=== PATIENT | female | born 1955 | race Caucasian/White ===

== ENCOUNTER → 2016-07-20 | Outpatient (CLI) | payer BC ==
--- NOTE | 2016-07-20 17:14 | CR ---
EXAMINATION: Right elbow HISTORY: Injury COMPARISON: None TECHNIQUE: 3 views FINDINGS/IMPRESSION: There is no acute osseous abnormality, dislocation, or fracture identified. Bon e mineralization and joint spaces appear normal without evidence of a joint effusion. Mild soft tiss ue swelling is noted along the medial epicondyles and overlying the olecranon.
--- NOTE | 2016-07-20 17:15 | CR ---
EXAMINATION: Right shoulder HISTORY: Injury COMPARISON: None TECHNIQUE: 3 views FINDINGS/IMPRESSION: There is no acute osseous abnormality, dislocation, or fracture identified. Bon e mineralization and joint spaces appear preserved. Mild acromioclavicular osteoarthritic changes ar e noted.
== END ==
LOC: MW.CHFP 15:55
PROVIDERS: ATTEND Physician Assistant
DX: S49.91XA Unspecified injury of right shoulder and upper arm, initial encounter (principal); S59.901A Unspecified injury of right elbow, initial encounter; M19.011 Primary osteoarthritis, right shoulder; M79.89 Other specified soft tissue disorders
CPT/HCPCS: 73030-26-RT; 73030-RT; 73080-26-RT; 73080-RT

== ENCOUNTER 2016-09-09 13:33 | Inpatient (IN) | payer BC ==
--- NOTE | 2016-09-09 13:58 | EDM.PDOC ---
<Alma Delia Sebastian - Last Filed: 09/09/16 18:41> ED HPI GI/ABDOMINAL - General Chief Complaint: Abdominal Pain Stated Complaint: ABD PAIN Time Seen by Provider: 09/09/16 13:51 Source of Information: Reports: Patient, RN notes reviewed History Limitations: Reports: No limitations - History of Present Illness INITIAL COMMENTS - FREE TEXT/NARRATIVE: HISTORY AND PHYSICAL: [60-year-old female presenting with midepigastric pain that started last night at 5:00pm] History of Present Illness: [Patient had a burger for supper and then later pain occurred ]Hysterectomy r/t dysfunctional Uterine bleeding Review of Systems: As per history of present illness and below otherwise all systems reviewed and negative. Past medical history: As per history of present illness and as reviewed below otherwise noncontributory. Surgical history: As per history of present illness and as reviewed below otherwise noncontributory. Social history: No reported history of drug or alcohol abuse. Family history: As per history of present illness and as reviewed below otherwise noncontributory. Physical exam: Alert White female answering questions appropriately. Very uncomfortable on the cart HEENT: Atraumatic, normocehpalic, pupils reactive, negative for conjunctival pallor or scleral icterus, mucous membranes moist, throat clear, neck supple, nontender, trachea midline. Lungs: Clear to auscultation, breath sounds equal bilaterally, chest non tender. Heart: S1S2, regular, negative for clicks, rubs, or JVD. Abdomen: Soft, nondistended, nontender. Negative for masses or hepatossplenmegaly. Negative for costovertebral tenderness. Pelvis: Stable nontender. Genitourinary: Deferred. Rectal: Deferred Extremities: Atraumatic, negative for cords or calf pain. Neurovascular unremarkable. Neuro: Awake, alert, oriented. Cranial nerves II through XII unremarkable. Cerebellum unremarkable. Motor and sensory unremarkable throughout. Exam nonfocal. DR Pond notified of the patient and CT with Small bowel obstruction. NG tube ordered. he will come in to evaluate the patient. Diagnostics: [US ABD / ABD Pelvis CT with contrast ] Therapeutics: [NG/ Morphine] Impression: [Small Bowel Obstruction] Plan: [admit to Dr. Pond] Definitive disposition and diagnosis as appropriate pending reevaluation and review of above. Timing/Duration: Reports: Hour(s): Location: generalized Quality: Reports: cramping - Related Data Allergies/ADRs: Allergies Allergy/AdvReac Type Severity Reaction Status Date / Time No Known Allergies Allergy Verified 09/09/16 13:43 Home Meds: Home Meds Aspirin 1 tab PO DAILY 06/08/15 [History] Atenolol [Tenormin] 1.5 tab PO BID 06/08/15 [History] DULoxetine [Cymbalta] 1 cap PO DAILY 06/08/15 [History] Gabapentin [Gabapentin] 1 cap PO DAILY PRN 06/08/15 [History] Gemfibrozil [Gemfibrozil] 1 tab PO BID 06/08/15 [History] Hydrochlorothiazide [Hydrochlorothiazide] 1 tab PO DAILY 06/08/15 [History] Hydrocodone/Acetaminophen [[place] 5-325 Tablet] 1 each PO Q4H PRN #12 tablet 06/22 [Rx] LORazepam 1 mg PO TID PRN #15 tablet 06/08/15 [Rx] Sennosides/Docusate Sodium [Stool Softener] 1 tab PO DAILY PRN 06/08/15 [History ] Vitamin B Complex & Vit C No.4 [Super B Complex] 1 tab PO DAILY 06/08/15 [ History] amLODIPine [Norvasc] 1 tab PO DAILY 06/08/15 [History] diphenhydrAMINE [Benadryl] 1 tab PO Q6H PRN 06/08/15 [History] Past Medical History Cardiovascular History: Reports: High cholesterol, Hypertension Musculoskeletal History: Reports: Back pain, chronic - Past Surgical History Female Surgical History: Reports: Hysterectomy, Tubal ligation Social & Family History - Family History Endocrine/Metabolic: Reports: Diabetes, type I Oncologic: Reports: Bone, Breast, Prostate, Skin - Tobacco Use Smoking Status *Q: Never Smoker Second Hand Smoke Exposure: No - Recreational Drug Use Recreational Drug Use: No ED ROS GENERAL - Review of Systems Review Of Systems: ROS reveals no pertinent complaints other than HPI. ED EXAM, GI/ABD - Physical Exam Exam: See Below (see dictation) Course - Vital Signs Last Recorded V/S: Last Vital Signs Temp 37.1 C 09/10/16 04:00 Pulse 84 09/10/16 04:00 Resp 19 09/10/16 04:00 BP 135/84 09/10/16 04:00 Pulse Ox 92 L 09/10/16 04:00 - Orders/Labs/Meds Orders: Active Orders 24 hr Category Date Time Status Admission Status [Patient Status] [ADT] Stat ADT 09/09/16 20:24 Active Notify Provider Consults [RC] ASDIRECTED Care 09/09/16 18:44 Inactive Abdomen Ltd [US] Stat Exams 09/09/16 13:55 Taken Abdomen Pelvis w Cont [CT] Stat Exams 09/09/16 16:26 Taken Chest 1V Frontal [CR] Stat Exams 09/09/16 20:07 Taken Sodium Chloride 0.9% [Saline Flush] Med 09/09/16 14:03 Active 10 ml FLUSH ASDIRECTED PRN Sodium Chloride 0.9% [Saline Flush] Med 09/09/16 14:03 Active 2.5 ml FLUSH ASDIRECTED PRN NG [Nasogastric Orogastric Tube Insertion] [OM.PC] Stat Oth 09/09/16 18:37 Ordered Saline Lock Insert [OM.PC] Stat Ot 09/09/16 14:02 Ordered Medication Orders Lactated Ringer's (Ringers, Lactated) 1,000 mls @ 125 mls/hr IV ASDIRECTED ALESSIO Last Admin: 09/10/16 06:55 Dose: 125 mls/hr Infusion: 09/10/16 06:04 Dose: 125 mls/hr Admin: 09/09/16 22:04 Dose: 125 mls/hr Pantoprazole Sodium 40 mg/ (Sodium Chloride) 10 mls @ 300 mls/hr IVPUSH DAILY [facility] Cefoxitin Sodium 1 gm/ Premix 50 mls @ 100 mls/hr IV Q6H [facility] Last Admin: 09/10/16 03:16 Dose: 100 mls/hr Infusion: 09/09/16 22:36 Dose: 100 mls/hr Admin: 09/09/16 22:06 Dose: 100 mls/hr Sodium Chloride (Saline Flush) 10 ml FLUSH ASDIRECTED PRN PRN Reason: Keep Vein Open Sodium Chloride (Saline Flush) 2.5 ml FLUSH ASDIRECTED PRN PRN Reason: Keep Vein Open Labs: Laboratory Tests 09/09/16 09/09/16 09/09/16 Range/Units 14:12 14:12 14:12 WBC 15.01 H (4.0-11.0) K/uL RBC 4.41 (4.30-5.90) M/uL Hgb 14.2 (12.0-16.0) g/dL Hct 41.4 (36.0-46.0) % MCV 93.9 (80.0-98.0) fL MCH 32.2 H (27.0-32.0) pg MCHC 34.3 (31.0-37.0) g/dL RDW Std Deviation 51.6 (28.0-62.0) fl RDW Coeff of An 15 (11.0-15.0) % Plt Count 455 H (150-400) K/uL MPV 9.60 (7.40-12.00) fL Neut % (Auto) 86.6 H (48.0-80.0) % Lymph % (Auto) 6.5 L (16.0-40.0) % Ness % (Auto) 5.9 (0.0-15.0) % Eos % (Auto) 0.9 (0.0-7.0) % Baso % (Auto) 0.1 (0.0-1.5) % Neut # (Auto) 13.0 H (1.4-5.7) K/uL Lymph # (Auto) 1.0 (0.6-2.4) K/uL Ness # (Auto) 0.9 H (0.0-0.8) K/uL Eos # (Auto) 0.1 (0.0-0.7) K/uL Baso # (Auto) 0.0 (0.0-0.1) K/uL Nucleated RBC % 0.0 /100WBC Nucleated RBCs # 0 K/uL Sodium 140 (136-146) mmol/L Potassium 4.3 (3.5-5.1) mmol/L Chloride 103 (98-110) mmol/L Carbon Dioxide 23 (21-31) mmol/L BUN 22 (6.0-23.0) mg/dL Creatinine 0.9 (0.6-1.5) mg/dL Est Cr Clr Drug Dosing 63.01 mL/min Estimated GFR (MDRD) > 60.0 ml/min Glucose 113 H (60-110) mg/dL Calcium 11.7 H (8.8-10.8) mg/dL Total Bilirubin 0.6 (0.1-1.5) mg/dL AST 26 (5-40) IU/L ALT 27 (8-54) IU/L Alkaline Phosphatase 90 (40-150) Total Protein 8.6 H (6.0-8.0) g/dL Albumin 4.7 (3.5-5.0) g/dL Globulin 3.9 H (2.0-3.5) g/dL Albumin/Globulin Ratio 1.2 L (1.3-2.8) Amylase 48 (10-90) U/L Lipase 39 (7-80) U/L H. pylori IgG Antibody NEGATIVE (NEG) Meds: Medications Generic Name Dose Route Start Last Admin Trade Name Vipul PRN Reason Stop Dose Admin Lactated Ringer's 1,000 mls @ 125 mls/hr 09/09/16 20:31 09/10/16 06:55 Ringers, Lactated IV 125 mls/hr ASDIRECTED ALESSIO Administration Pantoprazole Sodium 40 mg/ 10 mls @ 300 mls/hr 09/10/16 09:00 Sodium Chloride IVPUSH DAILY [facility] Cefoxitin Sodium 1 gm/ Premix 50 mls @ 100 mls/hr 09/09/16 20:30 09/10/16 03: 16 IV 100 mls/hr Q6H ALESSIO Administration Sodium Chloride 10 ml 09/09/16 14:03 Saline Flush FLUSH ASDIRECTED PRN Keep Vein Open Sodium Chloride 2.5 ml 09/09/16 14:03 Saline Flush FLUSH ASDIRECTED PRN Keep Vein Open Discontinued Medications Generic Name Dose Route Start Last Admin Trade Name Vipul PRN Reason Stop Dose Admin Al Hydroxide/Mg Hydroxide 15 0 ml 09/09/16 16:25 09/09/16 17:44 ml/ Metoclopramide HCl 5 mg/ PO 09/09/16 16:26 1 each Lidocaine HCl 5 ml ONETIME ONE Administration Famotidine 20 mg 09/09/16 14:04 09/09/16 14:46 Pepcid IVPUSH 09/09/16 14:05 20 mg ONETIME ONE Administration Sodium Chloride 1,000 mls @ 999 mls/hr 09/09/16 18:42 09/09/16 19:45 Normal Saline IV 09/09/16 19:42 999 mls/hr STAT ONE Administration Iopamidol 95 ml 09/09/16 17:13 09/09/16 17:14 Isovue-370 (76%) IVPUSH 09/09/16 17:14 95 ml ONETIME STA Administration Morphine Sulfate 2 mg 09/09/16 16:29 09/09/16 17:40 Morphine IV 09/09/16 16:30 2 mg ONETIME ONE Administration Morphine Sulfate 2 mg 09/09/16 18:43 09/09/16 19:46 Morphine IV 09/09/16 18:44 2 mg ONETIME ONE Administration Ondansetron HCl 4 mg 09/09/16 16:29 09/09/16 17:37 Zofran IVPUSH 09/09/16 16:30 4 mg ONETIME ONE Administration Departure - Departure Disposition: Admitted As Inpatient 67 Condition: good Clinical Impression: Small bowel obstruction <Heidi Plaza - Last Filed: 09/10/16 07:06> ED ROS GENERAL - Review of Systems Review Of Systems: ROS reveals no pertinent complaints other than HPI. Departure - Departure Time of Disposition: 19:00 Condition: good
[2016-09-09] MEDS ORDERED: Sodium Chloride 0.9% 2.5 ML Syringe FLUSH PRN (14:03)
[2016-09-09] MEDS ORDERED: Sodium Chloride 0.9% 10 ML Syringe FLUSH PRN (14:03)
[2016-09-09] MEDS ORDERED: Famotidine 20 MG/2 ML SDV IVPUSH ONE (14:04)
[2016-09-09 14:42] LABS: CHLORIDE,CL 103 mmol/L (98-110); SODIUM,NA 140 mmol/L (136-146)
[2016-09-09] MEDS ORDERED: Alum Hydrox/Mag Hydrox/Simeth 15 ML, Metoclopramide 5 MG, Lidocaine 2% 5 ML PO ONE ×3 (16:25)
[2016-09-09] MEDS ORDERED: Morphine 10 MG/ML Syringe IV ONE ×2 (16:29→18:43)
[2016-09-09] MEDS ORDERED: Ondansetron 4 MG/2 ML SDV IVPUSH ONE (16:29)
[2016-09-09] MEDS ORDERED: Iopamidol 755 Mg/ML 100 ML Bottle IVPUSH STA (17:13)
[2016-09-09] MEDS ORDERED: Sodium Chloride 0.9% 1,000 ML IV ONE (18:42)
--- NOTE | 2016-09-09 20:45 | PCM.SN ---
- Free Text/Narrative Note: admission h/p dictated ,595190 ct sbo and pain has been under control; will ngt, and serial abd exam; if emergency surgery, will likely R hemicolectomy with possible ileostomy; pt voiced understanding;
[2016-09-09] MEDS: Lactated Ringers 1,000 ML IV SCH (22:04)
[2016-09-09] MEDS: cefOXitin 1 GM in Premix Bag 1 BAG IV SCH (22:06)
[2016-09-10] MEDS: cefOXitin 1 GM in Premix Bag 1 BAG IV SCH ×4 (03:16→20:24)
[2016-09-10 05:32] LABS: CHLORIDE,CL 106 mmol/L (98-110); SODIUM,NA 137 mmol/L (136-146)
[2016-09-10] MEDS: Lactated Ringers 1,000 ML IV SCH ×2 (06:55→17:30)
[2016-09-10] MEDS ORDERED: Bisacodyl 10 MG Supp RECTAL ONE (07:08)
[2016-09-10] MEDS ORDERED: Sodium Chloride 0.9% with KCl 1,000 ML IV SCH (07:45)
[2016-09-10] MEDS ORDERED: Morphine 2 MG/ML Syringe IVPUSH PRN (07:59)
--- NOTE | 2016-09-10 08:16 | PCM.SURGPN ---
- General Info Date of Service: 09/10/16 POD#: 1 Functional Status: Reports: pain controlled (passing gas) - Review of Systems Gastrointestinal: Reports: No symptoms - Patient Data Vitals - most recent: Last Vital Signs Temp 98.7 F 09/10/16 04:00 Pulse 84 09/10/16 04:00 Resp 19 09/10/16 04:00 BP 135/84 09/10/16 04:00 Pulse Ox 92 L 09/10/16 04:00 Weight - most recent: 167 lb 8.821 oz I&O - last 24 hours: Intake & Output 09/09/16 09/10/16 09/10/16 22:59 06:59 14:59 Intake Total 50 1010 50 Output Total 990 Balance 50 20 50 Lab Results last 24 hrs: Laboratory Results - last 24 hr 09/10/16 09/10/16 Range/Units 04:43 04:43 WBC 7.18 (4.0-11.0) K/uL RBC 4.05 L (4.30-5.90) M/uL Hgb 12.9 (12.0-16.0) g/dL Hct 37.7 (36.0-46.0) % MCV 93.1 (80.0-98.0) fL MCH 31.9 (27.0-32.0) pg MCHC 34.2 (31.0-37.0) g/dL RDW Std Deviation 51.5 (28.0-62.0) fl RDW Coeff of An 16 H (11.0-15.0) % Plt Count 417 H (150-400) K/uL MPV 9.50 (7.40-12.00) fL Neut % (Auto) 75.0 (48.0-80.0) % Lymph % (Auto) 13.4 L (16.0-40.0) % Dixon % (Auto) 10.9 (0.0-15.0) % Eos % (Auto) 0.6 (0.0-7.0) % Baso % (Auto) 0.1 (0.0-1.5) % Neut # (Auto) 5.4 (1.4-5.7) K/uL Lymph # (Auto) 1.0 (0.6-2.4) K/uL Dixon # (Auto) 0.8 (0.0-0.8) K/uL Eos # (Auto) 0.0 (0.0-0.7) K/uL Baso # (Auto) 0.0 (0.0-0.1) K/uL Nucleated RBC % 0.0 /100WBC Nucleated RBCs # 0 K/uL Sodium 137 (136-146) mmol/L Potassium 3.1 L (3.5-5.1) mmol/L Chloride 106 (98-110) mmol/L Carbon Dioxide 20 L (21-31) mmol/L BUN 19 (6.0-23.0) mg/dL Creatinine 0.7 (0.6-1.5) mg/dL Est Cr Clr Drug Dosing 81.01 mL/min Estimated GFR (MDRD) > 60.0 ml/min Glucose 104 (60-110) mg/dL Calcium 9.9 (8.8-10.8) mg/dL Total Bilirubin 0.5 (0.1-1.5) mg/dL AST 18 (5-40) IU/L ALT 20 (8-54) IU/L Alkaline Phosphatase 72 (40-150) Total Protein 6.9 (6.0-8.0) g/dL Albumin 3.8 (3.5-5.0) g/dL Globulin 3.1 (2.0-3.5) g/dL Albumin/Globulin Ratio 1.2 L (1.3-2.8) Carcinoembryonic Ag 0.8 ng/mL Med Orders - Current: Current Medications Lactated Ringer's (Ringers, Lactated) 1,000 mls @ 125 mls/hr IV ASDIRECTED [facility] Last Admin: 09/10/16 06:55 Dose: 125 mls/hr Pantoprazole Sodium 40 mg/ (Sodium Chloride) 10 mls @ 300 mls/hr IVPUSH DAILY [facility] Cefoxitin Sodium 1 gm/ Premix 50 mls @ 100 mls/hr IV Q6H [facility] Last Admin: 09/10/16 08:02 Dose: 100 mls/hr Potassium Chloride/Sodium Chloride (Normal Saline With 40 Meq Kcl) 1,000 mls @ 125 mls/hr IV ASDIRECTED ALESSIO Stop: 09/10/16 15:44 Last Admin: 09/10/16 08:01 Dose: 125 mls/hr Morphine Sulfate (Morphine) 1 mg IVPUSH Q6H PRN PRN Reason: Pain Sodium Chloride (Saline Flush) 10 ml FLUSH ASDIRECTED PRN PRN Reason: Keep Vein Open Sodium Chloride (Saline Flush) 2.5 ml FLUSH ASDIRECTED PRN PRN Reason: Keep Vein Open Discontinued Medications Bisacodyl (Dulcolax) 10 mg RECTAL ONETIME ONE Stop: 09/10/16 07:09 Last Admin: 09/10/16 08:02 Dose: 10 mg Al Hydroxide/Mg Hydroxide 15 ml/ Metoclopramide HCl 5 mg/Lidocaine HCl 5 ml 0 ml PO ONETIME ONE Stop: 09/09/16 16:26 Last Admin: 09/09/16 17:44 Dose: 1 each Famotidine (Pepcid) 20 mg IVPUSH ONETIME ONE Stop: 09/09/16 14:05 Last Admin: 09/09/16 14:46 Dose: 20 mg Sodium Chloride (Normal Saline) 1,000 mls @ 999 mls/hr IV STAT ONE Stop: 09/09/16 19:42 Last Admin: 09/09/16 19:45 Dose: 999 mls/hr Iopamidol (Isovue-370 (76%)) 95 ml IVPUSH ONETIME STA Stop: 09/09/16 17:14 Last Admin: 09/09/16 17:14 Dose: 95 ml Morphine Sulfate (Morphine) 2 mg IV ONETIME ONE Stop: 09/09/16 16:30 Last Admin: 09/09/16 17:40 Dose: 2 mg Morphine Sulfate (Morphine) 2 mg IV ONETIME ONE Stop: 09/09/16 18:44 Last Admin: 09/09/16 19:46 Dose: 2 mg Ondansetron HCl (Zofran) 4 mg IVPUSH ONETIME ONE Stop: 09/09/16 16:30 Last Admin: 09/09/16 17:37 Dose: 4 mg - Exam Abdomen: bowel sounds present, soft, no tenderness, no distension - Problem List Review Problem List Initiated/Reviewed/Updated: Yes - My Orders Last 24 Hours: Active Orders 24 hr Category Date Time Status Communication Order [RC] ROUTINE Care 09/10/16 06:41 Active NG [Gastrointestinal Tube Mgmt] [RC] ASDIRECTED Care 09/09/16 21:06 Active Nothing per Oral After Midnight Diet [DIET] Diet 09/09/16 Dinner Active Nothing per Oral After Midnight Diet [DIET] Diet 09/10/16 Lunch Active Abdomen 2V AP Flat Upright [CR] Timed Exams 09/10/16 07:30 Taken CBC WITH AUTO DIFF [HEME] Routine Lab 09/11/16 05:00 Ordered CMP [COMPREHENSIVE METABOLIC PN,CMP] [CHEM] Routine Lab 09/11/16 05:00 Ordered Lactated Ringers [Ringers, Lactated] 1,000 ml Med 09/09/16 20:31 Active IV ASDIRECTED Morphine Med 09/10/16 07:59 Active 1 mg IVPUSH Q6H PRN Pantoprazole [ProTONIX IV] 40 mg Med 09/10/16 09:00 Active Sodium Chloride 0.9% [Normal Saline] 10 ml IVPUSH DAILY Sodium Chloride 0.9% with KCl [Normal Saline with 40 Med 09/10/16 07:45 Active mEq KCl] 1,000 ml IV ASDIRECTED cefOXitin [Mefoxin in Dextrose,Iso-Osm 1 GM/50 ML] 1 gm Med 09/09/16 20:30 Active Premix Bag 1 bag IV Q6H Medication Orders Lactated Ringer's (Ringers, Lactated) 1,000 mls @ 125 mls/hr IV ASDIRECTED ALESSIO Last Admin: 09/10/16 06:55 Dose: 125 mls/hr Infusion: 09/10/16 06:04 Dose: 125 mls/hr Admin: 09/09/16 22:04 Dose: 125 mls/hr Pantoprazole Sodium 40 mg/ (Sodium Chloride) 10 mls @ 300 mls/hr IVPUSH DAILY [facility] Cefoxitin Sodium 1 gm/ Premix 50 mls @ 100 mls/hr IV Q6H [facility] Last Admin: 09/10/16 08:02 Dose: 100 mls/hr Infusion: 09/10/16 03:46 Dose: 100 mls/hr Admin: 09/10/16 03:16 Dose: 100 mls/hr Infusion: 09/09/16 22:36 Dose: 100 mls/hr Admin: 09/09/16 22:06 Dose: 100 mls/hr Potassium Chloride/Sodium Chloride (Normal Saline With 40 Meq Kcl) 1,000 mls @ 125 mls/hr IV ASDIRECTED ALESSIO Stop: 09/10/16 15:44 Last Admin: 09/10/16 08:01 Dose: 125 mls/hr Morphine Sulfate (Morphine) 1 mg IVPUSH Q6H PRN PRN Reason: Pain Sodium Chloride (Saline Flush) 10 ml FLUSH ASDIRECTED PRN PRN Reason: Keep Vein Open Sodium Chloride (Saline Flush) 2.5 ml FLUSH ASDIRECTED PRN PRN Reason: Keep Vein Open - Assessment Assessment (Free Text/Narrative):: admitted for SBO w TI edema/thickening; doing well overnight, no pain meds used ; remarked pain resolved; no nausea; ngt put out very little; wbc dropped from 15 to 7; K 3.1 being replenished; overall, she doing better; kub still have air fluid level; cea 0.8 - Plan Plan (Free Text/Narrative):: continue npo/ngt suction/iv abx; pt has diarrhea; would suppository 10 mg dulcolax, replenish K, recheck blood work in the morning; and ct a/p w po contrast, gastrograffin; await official reading of kub this am
[2016-09-10] MEDS: Phenol 1.4% Oral Spray 177 ML Bottle MUCMEM PRN ×2 (09:36→17:01)
[2016-09-10] MEDS: Pantoprazole 40 MG in Sodium Chloride 0.9% 10 ML IVPUSH SCH (09:44)
[2016-09-11] MEDS: Lactated Ringers 1,000 ML IV SCH ×3 (01:17→18:39)
[2016-09-11] MEDS: cefOXitin 1 GM in Premix Bag 1 BAG IV SCH ×4 (02:33→20:45)
[2016-09-11 06:11] LABS: CHLORIDE,CL 111 mmol/L (98-110); SODIUM,NA 141 mmol/L (136-146)
[2016-09-11] MEDS: Pantoprazole 40 MG in Sodium Chloride 0.9% 10 ML IVPUSH SCH (08:38)
--- NOTE | 2016-09-11 09:56 | PCM.SN ---
- Free Text/Narrative Note: h/p re dictated, [id number];
--- NOTE | 2016-09-11 13:19 | CT ---
CT of the abdomen and pelvis without contrast. HISTORY: Pain TECHNIQUE: Axial CT images were obtained of the abdomen and pelvis without contrast. Coronal and sag ittal reconstructions obtained. FINDINGS: There is right basilar atelectasis and trace bilateral pleural effusions. There is an NG tube with t ip in the stomach. The liver, spleen, adrenal glands, and pancreas appear unremarkable for noncontrast examination. The gallbladder appears normal. There is no bulky retroperitoneal lymphadenopathy. No abdominal ascite s. There are no calcifications noted within the kidneys or along the courses of the ureters bilaterally . The large and small bowel are normal in caliber without evidence of obstruction. There are scattered areas of wall thickening noted within the small bowel most prominent within the distal ileum. The a ppendix appears normal. There is no bulky pelvic lymphadenopathy. There is a trace free pelvic fluid . No free air. The urinary bladder appears normal. Degenerative changes are noted within the lower lumbar spine with grade I anterolisthesis of L4 on L 5 and L5 on S1. IMPRESSION: 1. Mildly prominent loops of small bowel with multifocal areas of wall thickening most prominent wit hin the distal ileum. The differential includes an infectious etiology, Crohn's disease, versus tony ac disease. There is moderate narrowing at the ileocecal junction however contrast has passed into t he cecum. 2. Trace bilateral pleural effusions. 3. Small amount of abdominal ascites.
--- NOTE | 2016-09-11 14:41 | PCM.SURGPN ---
- General Info Date of Service: 09/11/16 Functional Status: Reports: pain controlled - Review of Systems General: Reports: No Symptoms (had BM X1, and passing gas; ngt put out is <100; adequate urin output, and pt is asking for food) - Patient Data Vitals - most recent: Last Vital Signs Temp 98.6 F 09/11/16 11:57 Pulse 105 H 09/11/16 11:57 Resp 16 09/11/16 11:57 BP 152/85 H 09/11/16 11:57 Pulse Ox 94 L 09/11/16 11:57 Weight - most recent: 167 lb 8.821 oz I&O - last 24 hours: Intake & Output 09/10/16 09/11/16 09/11/16 22:59 06:59 14:59 Intake Total 1109 1099 829 Output Total 730 1000 Balance 379 99 829 Lab Results last 24 hrs: Laboratory Results - last 24 hr 09/11/16 09/11/16 Range/Units 04:58 04:58 WBC 4.52 (4.0-11.0) K/uL RBC 3.71 L (4.30-5.90) M/uL Hgb 11.7 L (12.0-16.0) g/dL Hct 35.1 L (36.0-46.0) % MCV 94.6 (80.0-98.0) fL MCH 31.5 (27.0-32.0) pg MCHC 33.3 (31.0-37.0) g/dL RDW Std Deviation 53.2 (28.0-62.0) fl RDW Coeff of An 16 H (11.0-15.0) % Plt Count 327 (150-400) K/uL MPV 9.40 (7.40-12.00) fL Neut % (Auto) 67.1 (48.0-80.0) % Lymph % (Auto) 19.2 (16.0-40.0) % [place] % (Auto) 11.1 (0.0-15.0) % Eos % (Auto) 2.4 (0.0-7.0) % Baso % (Auto) 0.2 (0.0-1.5) % Neut # (Auto) 3.0 (1.4-5.7) K/uL Lymph # (Auto) 0.9 (0.6-2.4) K/uL [place] # (Auto) 0.5 (0.0-0.8) K/uL Eos # (Auto) 0.1 (0.0-0.7) K/uL Baso # (Auto) 0.0 (0.0-0.1) K/uL Nucleated RBC % 0.0 /100WBC Nucleated RBCs # 0 K/uL Sodium 141 (136-146) mmol/L Potassium 3.9 (3.5-5.1) mmol/L Chloride 111 H (98-110) mmol/L Carbon Dioxide 23 (21-31) mmol/L BUN 13 (6.0-23.0) mg/dL Creatinine 0.7 (0.6-1.5) mg/dL Est Cr Clr Drug Dosing 81.01 mL/min Estimated GFR (MDRD) > 60.0 ml/min Glucose 81 (60-110) mg/dL Calcium 9.5 (8.8-10.8) mg/dL Total Bilirubin 0.5 (0.1-1.5) mg/dL AST 18 (5-40) IU/L ALT 18 (8-54) IU/L Alkaline Phosphatase 63 (40-150) Total Protein 6.4 (6.0-8.0) g/dL Albumin 3.6 (3.5-5.0) g/dL Globulin 2.8 (2.0-3.5) g/dL Albumin/Globulin Ratio 1.3 (1.3-2.8) Med Orders - Current: Current Medications Lactated Ringer's (Ringers, Lactated) 1,000 mls @ 125 mls/hr IV ASDIRECTED [facility] Last Admin: 09/11/16 10:28 Dose: 125 mls/hr Pantoprazole Sodium 40 mg/ (Sodium Chloride) 10 mls @ 300 mls/hr IVPUSH DAILY [facility] Last Admin: 09/11/16 08:38 Dose: 300 mls/hr Cefoxitin Sodium 1 gm/ Premix 50 mls @ 100 mls/hr IV Q6H [facility] Last Admin: 09/11/16 08:45 Dose: 100 mls/hr Morphine Sulfate (Morphine) 1 mg IVPUSH Q6H PRN PRN Reason: Pain Phenol/Menthol (Chloraseptic Throat [place]) 1 ml MUCMEM Q6H PRN PRN Reason: Sore Throat Last Admin: 09/10/16 17:01 Dose: 1 ml Sodium Chloride (Saline Flush) 10 ml FLUSH ASDIRECTED PRN PRN Reason: Keep Vein Open Sodium Chloride (Saline Flush) 2.5 ml FLUSH ASDIRECTED PRN PRN Reason: Keep Vein Open Discontinued Medications Bisacodyl (Dulcolax) 10 mg RECTAL ONETIME ONE Stop: 09/10/16 07:09 Last Admin: 09/10/16 08:02 Dose: 10 mg Al Hydroxide/Mg Hydroxide 15 ml/ Metoclopramide HCl 5 mg/Lidocaine HCl 5 ml 0 ml PO ONETIME ONE Stop: 09/09/16 16:26 Last Admin: 09/09/16 17:44 Dose: 1 each Famotidine (Pepcid) 20 mg IVPUSH ONETIME ONE Stop: 09/09/16 14:05 Last Admin: 09/09/16 14:46 Dose: 20 mg Sodium Chloride (Normal Saline) 1,000 mls @ 999 mls/hr IV STAT ONE Stop: 09/09/16 19:42 Last Admin: 09/09/16 19:45 Dose: 999 mls/hr Potassium Chloride/Sodium Chloride (Normal Saline With 40 Meq Kcl) 1,000 mls @ 125 mls/hr IV ASDIRECTED ALESSIO Stop: 09/10/16 15:44 Last Admin: 09/10/16 08:01 Dose: 125 mls/hr Iopamidol (Isovue-370 (76%)) 95 ml IVPUSH ONETIME STA Stop: 09/09/16 17:14 Last Admin: 09/09/16 17:14 Dose: 95 ml Morphine Sulfate (Morphine) 2 mg IV ONETIME ONE Stop: 09/09/16 16:30 Last Admin: 09/09/16 17:40 Dose: 2 mg Morphine Sulfate (Morphine) 2 mg IV ONETIME ONE Stop: 09/09/16 18:44 Last Admin: 09/09/16 19:46 Dose: 2 mg Ondansetron HCl (Zofran) 4 mg IVPUSH ONETIME ONE Stop: 09/09/16 16:30 Last Admin: 09/09/16 17:37 Dose: 4 mg - Exam General: alert, oriented Abdomen: bowel sounds present, soft, no tenderness, no distension (ct w po contrast, jejunal and ti thickening, likely crohns; cecum thickening resolved) - Problem List Review Problem List Initiated/Reviewed/Updated: Yes - My Orders Last 24 Hours: Medication Orders Lactated Ringer's (Ringers, Lactated) 1,000 mls @ 125 mls/hr IV ASDIRECTED [facility] Last Admin: 09/11/16 10:28 Dose: 125 mls/hr Infusion: 09/11/16 09:17 Dose: 125 mls/hr Admin: 09/11/16 01:17 Dose: 125 mls/hr Infusion: 09/11/16 01:17 Dose: 125 mls/hr Admin: 09/10/16 17:30 Dose: 125 mls/hr Infusion: 09/10/16 14:55 Dose: 125 mls/hr Admin: 09/10/16 06:55 Dose: 125 mls/hr Infusion: 09/10/16 06:04 Dose: 125 mls/hr Admin: 09/09/16 22:04 Dose: 125 mls/hr Pantoprazole Sodium 40 mg/ (Sodium Chloride) 10 mls @ 300 mls/hr IVPUSH DAILY [facility] Last Admin: 09/11/16 08:38 Dose: 300 mls/hr Infusion: 09/10/16 09:46 Dose: 300 mls/hr Admin: 09/10/16 09:44 Dose: 300 mls/hr Cefoxitin Sodium 1 gm/ Premix 50 mls @ 100 mls/hr IV Q6H [facility] Last Admin: 09/11/16 08:45 Dose: 100 mls/hr Infusion: 09/11/16 03:03 Dose: 100 mls/hr Admin: 09/11/16 02:33 Dose: 100 mls/hr Infusion: 09/10/16 20:54 Dose: 100 mls/hr Admin: 09/10/16 20:24 Dose: 100 mls/hr Infusion: 09/10/16 14:06 Dose: 100 mls/hr Admin: 09/10/16 13:36 Dose: 100 mls/hr Infusion: 09/10/16 08:32 Dose: 100 mls/hr Admin: 09/10/16 08:02 Dose: 100 mls/hr Infusion: 09/10/16 03:46 Dose: 100 mls/hr Admin: 09/10/16 03:16 Dose: 100 mls/hr Infusion: 09/09/16 22:36 Dose: 100 mls/hr Admin: 09/09/16 22:06 Dose: 100 mls/hr Morphine Sulfate (Morphine) 1 mg IVPUSH Q6H PRN PRN Reason: Pain Phenol/Menthol (Chloraseptic Throat [place]) 1 ml MUCMEM Q6H PRN PRN Reason: Sore Throat Last Admin: 09/10/16 17:01 Dose: 1 ml Admin: 09/10/16 09:36 Dose: 1 ml Sodium Chloride (Saline Flush) 10 ml FLUSH ASDIRECTED PRN PRN Reason: Keep Vein Open Sodium Chloride (Saline Flush) 2.5 ml FLUSH ASDIRECTED PRN PRN Reason: Keep Vein Open - Assessment Assessment (Free Text/Narrative):: resolving bowel obstruction clinically, would dc ngt, to clear liquid diet; and continue iv abx, and seeking GI consult - Plan Plan (Free Text/Narrative):: doing well from surg standpoing, would continue 20cm suction for at least 2 days ; then water seal X 12 hr, then cxr, then pull tube if no ptx; then possible dc home; for the time being; cxr qam;
--- NOTE | 2016-09-11 17:11 | US ---
EXAM DATE: 09/09/16 PATIENT'S AGE: 60 Patient: ISAIAS BRUNO Facility: [place], [place] Site . Site : 1955 Study: US Abdomen [id number]/6/[id number] 3:46:39 PM Ordering Physician: Doctor Covarrubias Final Report: INDICATION: Mid epigastric pain. TECHNIQUE: Transabdominal imaging. COMPARISON: None. FINDINGS: Visualized portions of the pancreas appear unremarkable. Portions of the head and tail are obscured by bowel gas. No sludge or stones within the gallbladder. There is a nonmobile, nonshadowing echogenic focus along the gallbladder wall measuring up to 1 cm, likely related to a polyp. No gallbladder wall thickening or pericholecystic edema. Normal caliber bile ducts. The CBD measures 4 mm. The liver is normal in size and echogenicity with no suspicious intrahepatic lesions or masses. Right kidney is unremarkable. Specifically, no hydronephrosis. IMPRESSION: 1. No evidence of cholelithiasis or acute cholecystitis. 2. Incidentally noted is a 1 cm gallbladder polyp. Although likely benign, given its size a 1 year followup is recommended to document stability. Dictated by Peter Dumas MD @ 09/09/2016 4:07:59 PM Dictated by: Peter Dumas MD @ 09/09/2016 16:08:28 (Electronic Signature) Report Signed by Proxy. WILL
--- NOTE | 2016-09-11 17:14 | CT ---
EXAM DATE: 09/09/16 PATIENT'S AGE: 60 Patient: ISAIAS BRUNO Facility: [place], [place] Site . Site : 1955 Study: CT Abdomen/Pelvis [id number] w cont-09/09/2016 5:17:16 PM Ordering Physician: Doctor Covarrubias Final Report: INDICATION: Epigastric abdomen pain. TECHNIQUE: CT abdomen and pelvis acquired with 95 cc Isovue 370 IV contrast. COMPARISON: None. FINDINGS: LOWER CHEST: Unremarkable. LIVER: Unremarkable. Normal in size and attenuation. No masses. GALLBLADDER AND BILE DUCTS: Gallbladder is mildly distended but does not appear inflamed. No stone visualized. No biliary dilatation. PANCREAS: Unremarkable. No mass or inflammation. SPLEEN: Unremarkable. Normal in size. No masses. ADRENAL GLANDS: Unremarkable. No nodules. KIDNEYS: Scarring is present in the left kidney. Kidneys are otherwise unremarkable. GI TRACT: There is wall thickening/ edema in the cecum. This is obstructing the small bowel at the terminal ileum with a small bowel stool sign in the distal ileum and diffuse fluid filled distention of much of the small bowel. The small bowel is dilated up to 3 cm. Remainder of the GI tract is unremarkable. VASCULATURE: Unremarkable. LYMPH NODES: No lymphadenopathy. OMENTUM/PERITONEUM: No masses. Minimal free fluid is in the pelvis. No free air. PELVIS: Unremarkable. BONES: Unremarkable for age. IMPRESSION: Wall thickening/edema is present in the cecum. This could represent acute infection, inflammation, favored over neoplasm. This finding is causing a small bowel obstruction. Followup CT or colonoscopy is recommended to further evaluate for a malignant process. Dictated by Med Anderson MD @ 09/09/2016 6:14:50 PM Dictated by: Med Anderson MD @ 09/09/2016 18:15:18 (Electronic Signature) Report Signed by Proxy. WILL
--- NOTE | 2016-09-11 17:19 | PCM.SN ---
- Free Text/Narrative Note: fu ct reviewed possible celiac vs crohns disease; appt made to gi/[place] dr. Filiberto valentine, 09/14/16 1 pm; pt is put on to clear liquid diet; if beatriz po, home in morning
--- NOTE | 2016-09-11 17:29 | CR ---
EXAM DATE: 09/09/16 PATIENT'S AGE: 60 Patient: ISAIAS BRUNO Facility: [place], [place] Site . Site : 1955 Study: XRay Chest [id number]/6/2017 8:31:07 PM Ordering Physician: Doctor Covarrubias Final Report: Indication: NG tube placement Technique: Chest 1 view Comparison: None Findings/Impression: Cardiovascular and mediastinum: Heart size and vasculature are normal in caliber and appearance. Mediastinum is within normal limits. An NG tube is coiled in the proximal stomach. Lungs and pleural space: Mild atelectasis is favored over infiltrate in the medial lung bases. Remainder of the lungs and pleural spaces are clear. No pneumothorax. Bones and soft tissues: No acute findings. Dictated by Med Anderson MD @ 09/09/2016 9:01:03 PM Dictated by: Med Anderson MD @ 09/09/2016 21:01:08 (Electronic Signature) Report Signed by Proxy. WILL
[2016-09-11] MEDS ORDERED: Gabapentin 300 MG Cap PO SCH (21:00)
[2016-09-12] MEDS: cefOXitin 1 GM in Premix Bag 1 BAG IV SCH ×2 (04:01→08:12)
--- NOTE | 2016-09-12 06:23 | HP ---
DATE OF : 1955 PRIMARY CARE PHYSICIAN: None PCP The patient is a referral from emergency room by provider. REFERRING QUESTION: Small bowel obstruction. HISTORY OF PRESENT ILLNESS: The patient is a 60-year-old lady in her usual state of health and complained of 36 hours of epigastric pain. Pain subsequently getting worse. Sought help in the emergency room and CAT scan revealed bowel thickening in the cecum and likely the cause of bowel obstruction with dilated small bowel 3 cm. Surgery was then consulted. Currently, the patient remarked that the pain is 4/10 and last bowel movement was yesterday and is a well-formed stool and the patient currently is a little bit nauseated. Denies fever, chill, or diarrhea. The patient had regular colonoscopy probably about 3 to 5 years ago, was noted to be no finding. PAST MEDICAL HISTORY: Significant for no diabetes, [place], or CVA. The patient has hypertension. PAST SURGICAL HISTORY: Denied any abdominal surgical history other than colonoscopy 3 to 5 years ago, and also normal vaginal delivery x3. ALLERGIES: Please refer to nursing note for any details. MEDICATIONS: Please refer to nursing note for any details. REVIEW OF SYSTEMS: Same as history of present illness. FAMILY HISTORY: Noncontributory. PHYSICAL EXAMINATION: GENERAL: A very pleasant nice lady, even smiled to the doctor and in no acute distress. HEENT: Normocephalic, atraumatic. Sclerae anicteric. LUNGS: Clear to auscultation. HEART: Regular rate and rhythm. ABDOMEN: Soft, nondistended. No pulsating, tender midline abdominal structure. Well localized tenderness at the right lower quadrant and epigastrium. No rebound tenderness. Decreased bowel sounds. No surgical scar. No hernia appreciated. LABORATORY DATA: At the time of consultation, white count 15, and H and H is 14 and 41, and platelets 455. Sodium is 140, potassium 4.3, BUN 22, creatinine 0.9, and glucose 113. Total bilirubin is 0.6, alkaline phosphatase is 90, AST is 26 and ALT is 27 both normal, albumin is 4.7, amylase 48, and lipase is 39. H. pylori was negative. CAT scan with contrast done on 09/09/2016 was notable for wall thickening, edema is present in the cecum and represents acute infection, inflammation, or possible malignancy. This finding is causing a small bowel obstruction and recommend followup CAT scan or colonoscopy for further evaluation. Proposed the patient to either have timely surgery right now, cancer surgery and possible ileostomy or NG tube decompression sometimes for infectious process and NG tube decompression is enough. After NG tube decompression, the patient may then have a bowel prep if the patient is still indicated for surgical intervention. Currently, pt has unprepped bowel with large amount of stool, emergency surgery, may need ileostomy for 3 to 6 months. After long time discussion with the patient and sister, they attempt to transfer to [facility], and discussed with the other surgeon who recommend NG tube decompression as malignancy is not very common on an emergency situation and return discussion with the patient, the patient agreed to that arrangement and we will put NG tube decompress and reassess in the morning and hopefully, NG tube decompression is successful, then the patient can have colonoscopy or bowel prep if this is indicated. For the time being, n.p.o. IV fluids, and serial abdominal exam and repeat CAT scan process if indicated. The patient agreeing to arrangement. As always, thank you for the kind referral. HERMILO HUBER /[id number] WILL
[2016-09-12] MEDS: Gabapentin 300 MG Cap PO SCH ×2 (08:11→11:16)
[2016-09-12] MEDS: Pantoprazole 40 MG in Sodium Chloride 0.9% 10 ML IVPUSH SCH (10:31)
--- NOTE | 2016-09-12 11:01 | CR ---
EXAM DATE: 09/09/16 PATIENT'S AGE: 60 Patient: ISAIAS BRUNO Facility: [place], [place] Site . Site : 1955 Study: XRay Abdomen [id number]/7/2017 7:43:19 AM Ordering Physician: Dejah Nunes Final Report: INDICATION: fu dilated small bowel Indication: Dilated small bowel. Technique: Abdomen, three views. Comparison: CT of the abdomen and pelvis 09/09/2016. Findings: NG tube in place. Tip of this catheter is in the gastric fundus. The bowel gas pattern is nonspecific. Loops of small bowel and colon are air-filled but nondilated. The findings may indicate a resolving small bowel obstruction, given findings from recent CT scan. Lung bases are clear. No suspicious calcifications. There is no soft tissue mass by plain film. Impression: Nonspecific bowel gas pattern. No free air. Dictated by Beni Hannah MD @ 09/10/2016 7:50:50 AM Dictated by: Beni Hannah MD @ 09/10/2016 07:51:02 (Electronic Signature) Report Signed by Proxy. [facility]
[2016-09-12 12:16] VITALS: BP 149/89
--- NOTE | 2016-09-12 13:06 | PCM.DCSUM1 ---
Discharge Summary - Hospital Course Free Text/Narrative:: please see admitting h/p for details, in summary, pt presented to ED for abd pain; ct > cecum wall thickening and SBO - Discharge Data Discharge Date: 09/12/16 Discharge Disposition: Home, Self-Care 01 Condition: Fair - Patient Summary/Data Hospital Course: pt was admitted with ngt decompressing; and iv abx; pt continued to do well, wbc resolved, pain resolved, and BM X 2; repeat ct cw possible crohns vs celiac dz; pt has a GI fu apptment; and will be dc home on gen liquid diet till seen by gi - Patient Instructions Diet, Other: full liquid diet till seen by GI Activity: No Strenuous Activities Driving: Do Not Drive Showering/Bathing: May Shower Notify Provider of: Fever, Increased Pain, Nausea and/or Vomiting - Discharge Plan Home Medications: Home Meds Aspirin 1 tab PO BEDTIME 06/08/15 [History] Atenolol [Tenormin] 1.5 tab PO BID 06/08/15 [History] DULoxetine [Cymbalta] 1 cap PO DAILY 06/08/15 [History] Gabapentin 1 cap PO QID 06/08/15 [History] Gemfibrozil 1 tab PO BIDAC 06/08/15 [History] Hydrochlorothiazide 1 tab PO BEDTIME 06/08/15 [History] Hydrocodone/Acetaminophen [[place] 5-325] 1 each PO Q4H PRN #12 tablet 06/08/15 [ Rx] LORazepam 1 mg PO TID PRN #15 tablet 06/08/15 [Rx] Sennosides/Docusate Sodium [Stool Softener] 1 tab PO BEDTIME 06/08/15 [History] Vitamin B Complex & Vit C No.4 [Super B Complex] 1 tab PO BEDTIME 06/08/15 [ History] amLODIPine [Norvasc] 1 tab PO BEDTIME 06/08/15 [History] diphenhydrAMINE [Benadryl] 1 tab PO Q6H PRN 06/08/15 [History] Calcium Carbonate [Calcium] 1 tab PO BEDTIME 09/11/16 [History] Captopril [Capoten] 1 tab PO BID 09/11/16 [History] Multivitamin [Multivitamins] 1 cap PO BEDTIME 09/11/16 [History] Propylene Glycol/Peg 400 [Systane 0.3-0.4% Eye Drops] 1 drop EYEBOTH TID [History] Referrals: Pierre De Los Santos MD [Ordering Only Provider] - 09/14/16 1:00 pm [place] P[place] MD [Physician] - 10/04/16 9:45 am - Patient Data Vitals - Most Recent: Last Vital Signs Temp 97.6 F 09/12/16 12:00 Pulse 103 H 09/12/16 12:00 Resp 20 09/12/16 12:00 BP 149/89 H 09/12/16 12:00 Pulse Ox 94 L 09/12/16 12:00 Weight - Most Recent: 167 lb 8.821 oz I&O - Last 24 hours: Intake & Output 09/11/16 09/12/16 09/12/16 22:59 06:59 14:59 Intake Total 1150 1642 Output Total 2650 2100 Balance -1500 -458 Med Orders - Current: Current Medications Gabapentin (Neurontin) 300 mg PO TID@0800,1200,1600 [facility] Last Admin: 09/12/16 11:16 Dose: 300 mg Gabapentin (Neurontin) 600 mg PO BEDTIME [facility] Last Admin: 09/11/16 20:45 Dose: 600 mg Lactated Ringer's (Ringers, Lactated) 1,000 mls @ 125 mls/hr IV ASDIRECTED [facility] Last Admin: 09/11/16 18:39 Dose: 125 mls/hr Pantoprazole Sodium 40 mg/ (Sodium Chloride) 10 mls @ 300 mls/hr IVPUSH DAILY [facility] Last Admin: 09/12/16 10:31 Dose: 300 mls/hr Cefoxitin Sodium 1 gm/ Premix 50 mls @ 100 mls/hr IV Q6H [facility] Last Admin: 09/12/16 08:12 Dose: 100 mls/hr Morphine Sulfate (Morphine) 1 mg IVPUSH Q6H PRN PRN Reason: Pain Phenol/Menthol (Chloraseptic Throat [place]) 1 ml MUCMEM Q6H PRN PRN Reason: Sore Throat Last Admin: 09/10/16 17:01 Dose: 1 ml Sodium Chloride (Saline Flush) 10 ml FLUSH ASDIRECTED PRN PRN Reason: Keep Vein Open Sodium Chloride (Saline Flush) 2.5 ml FLUSH ASDIRECTED PRN PRN Reason: Keep Vein Open Discontinued Medications Bisacodyl (Dulcolax) 10 mg RECTAL ONETIME ONE Stop: 09/10/16 07:09 Last Admin: 09/10/16 08:02 Dose: 10 mg Al Hydroxide/Mg Hydroxide 15 ml/ Metoclopramide HCl 5 mg/Lidocaine HCl 5 ml 0 ml PO ONETIME ONE Stop: 09/09/16 16:26 Last Admin: 09/09/16 17:44 Dose: 1 each Famotidine (Pepcid) 20 mg IVPUSH ONETIME ONE Stop: 09/09/16 14:05 Last Admin: 09/09/16 14:46 Dose: 20 mg Sodium Chloride (Normal Saline) 1,000 mls @ 999 mls/hr IV STAT ONE Stop: 09/09/16 19:42 Last Admin: 09/09/16 19:45 Dose: 999 mls/hr Potassium Chloride/Sodium Chloride (Normal Saline With 40 Meq Kcl) 1,000 mls @ 125 mls/hr IV ASDIRECTED ALESS[facility] Stop: 09/10/16 15:44 Last Admin: 09/10/16 08:01 Dose: 125 mls/hr Iopamidol (Isovue-370 (76%)) 95 ml IVPUSH ONETIME STA Stop: 09/09/16 17:14 Last Admin: 09/09/16 17:14 Dose: 95 ml Morphine Sulfate (Morphine) 2 mg IV ONETIME ONE Stop: 09/09/16 16:30 Last Admin: 09/09/16 17:40 Dose: 2 mg Morphine Sulfate (Morphine) 2 mg IV ONETIME ONE Stop: 09/09/16 18:44 Last Admin: 09/09/16 19:46 Dose: 2 mg Ondansetron HCl (Zofran) 4 mg IVPUSH ONETIME ONE Stop: 09/09/16 16:30 Last Admin: 09/09/16 17:37 Dose: 4 mg *Q Meaningful Use (DIS) - VTE *Q VTE Criteria *Q: - Stroke *Q Stroke Criteria *Q: - AMI *Q AMI Criteria *Q:
== END 2016-09-12 13:32 | disposition home or self-care (01) | DRG 247 ==
LOC: MW.ED 13:33 → MW.MS 20:24
PROVIDERS: ADMIT Surgery; ATTEND Surgery
DX: K56.60 Unspecified intestinal obstruction (principal); E78.00 Pure hypercholesterolemia, unspecified; I10 Essential (primary) hypertension; Z79.899 Other long term (current) drug therapy
CPT/HCPCS: 36415; 43753; 71010; 71010-26; 74020; 74020-26; 74176; 74176-26; 74177; 74177-26; 76705; 76705-26; 80053; 82150; 82378; 83690; 85025; 86677; 96361; 96374; 96375; 96376; 99284-25; 99285; A9270-GY; C9113; J0694; J2270; J2405; J3480; J7040; J7120; Q9967

== ENCOUNTER 2020-01-15 10:39 | Day surgery (SDC) | payer BC ==
[2020-01-15] MEDS ORDERED: Lidocaine 2% 5 ML SDV INJECT ONE (12:00)
[2020-01-15] MEDS ORDERED: Iopamidol 200-M 10 ML vial ITHECAL ONE (12:00)
[2020-01-15] MEDS ORDERED: Betamethasone Acetate/Betamethasone Sod Phosphate 30 MG/5 ML MDV EPIDUR ONE (12:00)
[2020-01-15] MEDS ORDERED: Ropivacaine 0.5% 5 MG/ML 30 ML SDV INJECT ONE (12:00)
--- NOTE | 2020-01-15 16:47 | OR ---
SURGEON: Mine Cantu D.O. DATE OF PROCEDURE: 01/15/2020 PRIMARY SURGEON: Mine Cantu DO ASSISTANTS: OR staff present: 1. Brianna Ash, RT. 2. Bob Leal, RN. 3. Simin Holland, RN. 4. Wolf Krueger, GERARDO. PREOPERATIVE DIAGNOSES: 1. Lumbar radiculopathy, right lower extremity. 2. Lumbar degenerative disk disease, L3-4 and L5-S1. 3. Lumbosacral neural foraminal stenosis, bilateral, L5-S1. 4. Complex regional pain syndrome, right lower extremity. 5. Complex regional pain syndrome type 1. POSTOPERATIVE DIAGNOSES: 1. Lumbar radiculopathy, right lower extremity. 2. Lumbar degenerative disk disease, L3-4 and L5-S1. 3. Lumbosacral neural foraminal stenosis, bilateral, L5-S1. 4. Complex regional pain syndrome, right lower extremity. 5. Complex regional pain syndrome type 1. PROCEDURES PERFORMED: 1. Right transforaminal epidural steroid injection at L3. 2. Right transforaminal epidural steroid injection at S1. 3. Fluoroscopic guidance for needle placement. 4. Local with oral Valium for sedation. PREOPERATIVE PAIN: 4 to 8 out of 10. POSTOPERATIVE PAIN: 0/10. FOLLOWUP: In the Pain [facility] in 1 month. LAVON / MIYAL /[id number]
== END 2020-01-15 13:05 | disposition home or self-care (01) ==
LOC: MW.SDS 10:39
PROVIDERS: ATTEND Anesthesiology
DX: M51.16 Intervertebral disc disorders with radiculopathy, lumbar region (principal); M48.061 Spinal stenosis, lumbar region without neurogenic claudication; G90.521 Complex regional pain syndrome I of right lower limb; E78.00 Pure hypercholesterolemia, unspecified; I10 Essential (primary) hypertension; E66.9 Obesity, unspecified; M85.80 Other specified disorders of bone density and structure, unspecified site; M47.27 Other spondylosis with radiculopathy, lumbosacral region; Z79.899 Other long term (current) drug therapy; Z79.82 Long term (current) use of aspirin; Z68.28 Body mass index [BMI] 28.0-28.9, adult

== ENCOUNTER 2020-02-19 11:51 | Day surgery (SDC) | payer BC ==
[2020-02-19] MEDS ORDERED: Betamethasone Acetate/Betamethasone Sod Phosphate 30 MG/5 ML MDV EPIDUR ONE (13:00)
[2020-02-19] MEDS ORDERED: Iopamidol 200-M 10 ML vial ITHECAL ONE (13:00)
[2020-02-19] MEDS ORDERED: Ropivacaine 0.5% 5 MG/ML 30 ML SDV INJECT ONE (13:00)
[2020-02-19] MEDS ORDERED: Lidocaine 2% 5 ML SDV INJECT ONE (13:00)
--- NOTE | 2020-02-19 16:33 | OR ---
SURGEON: Mine Cantu D.O. DATE OF PROCEDURE: 02/19/2020 PRIMARY SURGEON: Mine Cantu D.O. PLANT NURSERY WORKER: OR Staff Present: 1. Bob Leal RN. 2. Wolf Krueger RN. 3. Yousuf Sanches RT. WOUND CLASS: I PROCEDURES PERFORMED: 1. Right transforaminal epidural steroid injection at S1. 2. Fluoroscopic guidance for needle placement. 3. Local with oral Valium for sedation. SCREENING QUESTIONS: The patient answered "no" to all of the following questions: 1. Are you allergic to iodine, Betadine or latex? 2. Do you have a bleeding disorder? 3. Do you have any joint replacements, heart valve replacements, or a pacemaker? 4. Are you allergic to anti-inflammatories or blood thinners? 5. Do you have any current local or systemic infections? The patient's other symptoms to be treated include numbness, paresthesia, dysesthesia or hypoesthesia referred into the left lower extremity or any weakness in the involved myotome. This procedure is being performed in accordance with national guidelines as written by the [employer] (SERENE). DESCRIPTION OF PROCEDURE: The patient had the procedure thoroughly explained including risks, benefits and alternatives. Consent was signed in my clinic indicating understanding and willingness to proceed. The patient presented to [facility] where the patient was escorted to the dressing room to disrobe and change into a hospital gown. Preoperative vital signs were taken and stable. The patient reported that Valium was taken prior to the procedure. The patient was brought to the procedure room and placed in the prone position on the table. A pillow was placed under the abdomen in order to flatten the lumbar lordosis. The back was prepped with ChloraPrep and sterilely draped. All personnel in the operating room were dressed in appropriate attire including surgical scrubs, head and shoe covers. This was to ensure sterility while in the treatment room. During the time fluoroscopy was in use, all personnel in the operating room wore lead mejia with thyroid collars. Sterile technique was used during the procedure. The fluoroscope was placed for the thoracic transforaminal epidural steroid injection. There was no sign of infection at the skin site for needle insertion. The skin was anesthetized with 2% lidocaine with a 27 gauge 1-1/2 inch needle. Then a 22 gauge 3-1/2 inch spinal needle, advanced to the foramen. Under direct fluoroscopic guidance needle position was verified in three views; AP, oblique and lateral, with 0.2 cubic centimeters increments of Isovue-200 dye. No intravascular flow pattern was observed under live fluoroscopy. A total of 12 milligrams of Celestone was slowly injected after negative aspiration of heme, cerebrospinal fluid and no paresthesias were noted. The needle was cleared prior to removal from the skin. No adverse reactions were noted. The patient was brought to the recovery room awake and in good condition by my staff. The patient was monitored and discharge instructions were given after a brief stay in the recovery area. Both oral and written discharge and follow up instructions were given. The patient will follow up in the clinic in 3-4 weeks post procedure to evaluate the efficacy. The patient verbalized understanding including understanding of those signs and symptoms that would require emergency care and knows how to contact the office if there are any problems or questions in the meantime. PREOPERATIVE PAIN: 5/10. POSTOPERATIVE PAIN: 0/10. FOLLOWUP: In the pain clinic in 3 weeks. LAVON / MAYO /[id number]
== END 2020-02-19 13:44 ==
LOC: MW.SDS 11:51
PROVIDERS: ATTEND Anesthesiology
DX: G89.29 Other chronic pain (principal); M51.16 Intervertebral disc disorders with radiculopathy, lumbar region; M48.061 Spinal stenosis, lumbar region without neurogenic claudication; G62.9 Polyneuropathy, unspecified; M17.11 Unilateral primary osteoarthritis, right knee; E78.00 Pure hypercholesterolemia, unspecified; I10 Essential (primary) hypertension; E66.9 Obesity, unspecified; Z79.899 Other long term (current) drug therapy; Z79.82 Long term (current) use of aspirin
CPT/HCPCS: 64483; J0702; J2001; J2795; Q9966

== ENCOUNTER 2020-06-24 11:21 | Day surgery (SDC) | payer BC ==
[2020-06-24] MEDS ORDERED: Ropivacaine 0.5% 5 MG/ML 30 ML SDV INJECT ONE (12:30)
[2020-06-24] MEDS ORDERED: Betamethasone Acetate/Betamethasone Sod Phosphate 30 MG/5 ML MDV EPIDUR ONE (12:30)
[2020-06-24] MEDS ORDERED: Iopamidol 200-M 10 ML vial ITHECAL ONE (12:30)
[2020-06-24] MEDS ORDERED: Lidocaine 2% 5 ML SDV INJECT ONE (12:30)
--- NOTE | 2020-06-24 19:51 | OR ---
SURGEON: Mine Cantu D.O. DATE OF PROCEDURE: 06/24/2020 PRIMARY SURGEON: Mine Cantu D.O. ASSISTANTS: OR staff present: 1. Bob Leal RN. 2. Wolf Krueger RN. 3. RT Noah. WOUND CLASS: I. PREOPERATIVE DIAGNOSES: 1. Lumbar L5-S1 degenerative disk disease. 2. Right L5-S1 radiculopathy. POSTOPERATIVE DIAGNOSES: 1. Lumbar L5-S1 degenerative disk disease. 2. Right L5-S1 radiculopathy. PROCEDURES PERFORMED: 1. Right transforaminal epidural steroid injection at S1. 2. Fluoroscopic guidance for needle placement. 3. Local with oral Valium for sedation. SCREENING QUESTIONS: The patient answered "no" to all of the following questions: 1. Are you allergic to iodine, Betadine or latex? 2. Do you have a bleeding disorder? 3. Do you have any joint replacements, heart valve replacements, or a pacemaker? 4. Are you allergic to anti-inflammatories or blood thinners? 5. Do you have any current local or systemic infections? DESCRIPTION OF PROCEDURE: The patient had the procedure thoroughly explained including risks, benefits and alternatives. Consent was signed in my clinic indicating understanding and willingness to proceed. The patient presented to [facility] where the patient was escorted to the dressing room to disrobe and change into a hospital gown. Preoperative vital signs were taken and stable. The patient reported that Valium was taken prior to the procedure. The patient was brought to the procedure room and placed in the prone position on the table. A pillow was placed under the abdomen in order to flatten the lumbar lordosis. The back was prepped with ChloraPrep and sterilely draped. All personnel in the operating room were dressed in appropriate attire including surgical scrubs, head and shoe covers. This was to ensure sterility while in the treatment room. During the time fluoroscopy was in use, all personnel in the operating room wore lead mejia with thyroid collars. Sterile technique was used during the procedure. The fluoroscope was placed for the right S1 transforaminal epidural steroid injection. There was no sign of infection at the skin site for needle insertion. The skin was anesthetized with 2% lidocaine with a 27 gauge 1-1/2 inch needle. Then a 22 gauge 3-1/2 inch spinal needle, advanced to the S1. Under direct fluoroscopic guidance needle position was verified in three views; AP, oblique and lateral, with 0.2 cubic centimeters increments of Isovue-200 dye. No intravascular flow pattern was observed under live fluoroscopy. Then 12 milligrams of Celestone and local was slowly injected after negative aspiration of heme, cerebrospinal fluid and no paresthesias were noted. The needle was cleared prior to removal from the skin. No adverse reactions were noted. The patient was brought to the recovery room awake and in good condition by my staff. The patient was monitored and discharge instructions were given after a brief stay in the recovery area. Both oral and written discharge and follow up instructions were given. The patient will follow up in the clinic in 3-4 weeks post procedure to evaluate the efficacy. The patient verbalized understanding including understanding of those signs and symptoms that would require emergency care and knows how to contact the office if there are any problems or questions in the meantime. PREOPERATIVE PAIN: 5/10. POSTOPERATIVE PAIN: 0/10. FOLLOWUP: In the Pain Clinic in 1 month. LAVON / MAYO /[id number] MTDBladimir
== END 2020-06-24 13:07 ==
LOC: MW.SDS 11:21
PROVIDERS: ATTEND Anesthesiology
DX: G90.521 Complex regional pain syndrome I of right lower limb (principal); M51.17 Intervertebral disc disorders with radiculopathy, lumbosacral region; M51.16 Intervertebral disc disorders with radiculopathy, lumbar region; M47.26 Other spondylosis with radiculopathy, lumbar region; M48.061 Spinal stenosis, lumbar region without neurogenic claudication; G62.9 Polyneuropathy, unspecified; G57.10 Meralgia paresthetica, unspecified lower limb; I10 Essential (primary) hypertension; E66.9 Obesity, unspecified; M85.80 Other specified disorders of bone density and structure, unspecified site; Z91.048 Other nonmedicinal substance allergy status; Z79.82 Long term (current) use of aspirin; Z79.899 Other long term (current) drug therapy; Z98.890 Other specified postprocedural states; Z68.28 Body mass index [BMI] 28.0-28.9, adult
CPT/HCPCS: 64483; J0702; J2795; Q9966

== ENCOUNTER 2021-04-13 05:34 | Inpatient (IN) | payer BC ==
[2021-04-13] MEDS ORDERED: Pantoprazole 40 MG/10 ML Syringe IVPUSH ONE (06:21)
[2021-04-13] MEDS ORDERED: Ondansetron 4 MG/2 ML SDV IVPUSH ONE (06:21)
[2021-04-13] MEDS ORDERED: Sodium Chloride 0.9% 2.5 ML Syringe FLUSH PRN (06:21)
[2021-04-13] MEDS ORDERED: Sodium Chloride 0.9% 10 ML Syringe FLUSH PRN (06:21)
--- NOTE | 2021-04-13 06:21 | EDM.PDOC ---
<Huber Wylie - Last Filed: 04/13/21 07:19> ED HPI GENERAL MEDICAL PROBLEM - General Chief Complaint: Abdominal Pain Stated Complaint: RECTAL BLEEDING Time Seen by Provider: 04/13/21 05:53 - History of Present Illness INITIAL COMMENTS - FREE TEXT/NARRATIVE: HISTORY AND PHYSICAL: History of present illness: This is a 65-year-old female with a history significant for hypertension and Crohn's colitis who presents ER today secondary to bloody bowel movements started at approximately 1 PM yesterday. Patient reports that at approximately 1 PM yesterday she had a loose explosive bowel movement and ever since then she has had bloody mucousy stool that comes out even when she moves around or coughs. She reports that she has been seeping out from her rectum. Patient denies any recent fevers, shakes, chills. Patient ports nausea with no vomiting or constipation. Patient denies any dysuria, frequency, urgency. Patient does complain of some left lower quadrant abdominal discomfort. Patient reports that she has not had any admissions in the past since her Crohn's colitis diagnosis which was back in 2017. Patient reports that she has not had episodes of bloody bowel movements like this in the past associated with her colitis. Patient reports that she receives infusions every 8 weeks for her Crohn's colitis here at [place]. Patient denies any chest pain or shortness of breath but does feel slightly lightheaded today. Patient reports that she has had Covid and has had both of her Covid vaccines but not her influenza vaccine. Review of systems: As per history of present illness and below otherwise all systems reviewed and negative. Past medical history: As per history of present illness and as reviewed below otherwise noncontributory. Surgical history: As per history of present illness and as reviewed below otherwise noncontributory. Social history: No reported history of drug abuse. Family history: As per history of present illness and as reviewed below otherwise noncontributory. Physical exam: This patient was seen and evaluated during the 2019 SARS-CoV-2 novel coronavirus pandemic period. Community viral transmission is ongoing at time of this encounter and the emergency department is operating under pandemic response procedures. Constitutional: Patient is oriented to person, place, and time. Appears well- developed and well-nourished. No distress. HEENT: Moist mucous membranes Head: Normocephalic and atraumatic Eyes: Right eye exhibits no discharge. Left eye exhibits no discharge. No scleral icterus Neck: Normal range of motion. No tracheal deviation present. Cardiovascular: Normal rate and regular rhythm. Pulmonary: Effort normal, no respiratory distress. Abd: Soft, nondistended, no rebound/guarding, no psoas or obturator signs, no tenderness at Mcberney's point, no Perry's sign. Pt does not present with an exam that would be consistent with an acute surgical abdomen at this time. Patient was tender to palpation to her left lower quadrant. Rectal exam: Bloody mucousy stool noted around her rectum and on a pad. This is heme positive red stool Musculoskeletal: Normal range of motion Neurologic: Alert and oriented to person, place and time. Skin: [place], warm and dry. Psychiatric: Normal mood and affect. Behavior is normal. Judgment and thought content normal. Nursing note and vital signs have been reviewed Diagnostics: [] Therapeutics: [] Assessment and plan: This is a 65-year-old female with history significant for Crohn's colitis who presents to the ER today secondary to episodes of explosive diarrhea that started at 1 PM yesterday afternoon and has been followed by almost constant seepage of bloody mucousy stool from her rectum. Patient has associated left lower quadrant abdominal discomfort. Patient reports she has never needed a blood transfusion for her Crohn's colitis in the past (she reports she did require it during childbirth long time ago but none since). In the ED, the patient's vital signs are stable without evidence of hemodynamic instability. In the ED, we will obtain a CBC, CMP, INR, PTT, type and screen, lipase. Patient will also get a Covid/influenza, patient will get a CT scan of her abdomen pelvis with IV contrast. During the course of the patient's evaluation for abdominal pain, kidney stone, pancreatitis, cholecystitis, diverticulitis, abdominal aortic aneurysm, myocardial infarction, ischemic bowel, ruptured peptic ulcer, ruptured viscus, UTI,and appendicitis as well as other causes of abdominal pain have been considered. Definitive disposition and diagnosis as appropriate pending reevaluation and review of above. Lower Abdomen Pain Score (Numeric/FACES): 2 - Related Data Allergies Allergy/AdvReac Type Severity Reaction Status Date / Time No Known Drug Allergies Allergy Other Verified 04/13/21 05:39 pollen extracts Allergy Other Verified 04/13/21 05:39 Home Meds: Home Meds Aspirin 1 tab PO BEDTIME 06/08/15 [History] DULoxetine [Cymbalta] 1 cap PO DAILY 06/08/15 [History] Gabapentin 1 cap PO QID 06/08/15 [History] Sennosides/Docusate Sodium [Stool Softener] 1 tab PO BEDTIME 06/08/15 [History] Vitamin B Complex Vit C No.4 [Super B Complex] 1 tab PO BEDTIME 06/08/15 [History] amLODIPine [Norvasc] 1 tab PO BEDTIME 06/08/15 [History] diphenhydrAMINE [Benadryl] 1 tab PO Q6H PRN 06/08/15 [History] Calcium Carbonate [Calcium] 1 tab PO BEDTIME 09/11/16 [History] Captopril [Capoten] 1 tab PO BID 09/11/16 [History] Multivitamin [Multivitamins] 1 cap PO BEDTIME 09/11/16 [History] Pantoprazole 20 mg PO 04/13/21 [History] Potassium Chloride 20 meq PO 04/13/21 [History] atenoloL [Atenolol] 100 gm MC 04/13/21 [History] Past Medical History HEENT History: Reports: Impaired Vision Cardiovascular History: Reports: High Cholesterol, Hypertension Genitourinary History: Reports: Other (See Below) Other Genitourinary History: bladder infection Musculoskeletal History: Reports: Back Pain, Chronic Hematologic History: Reports: Blood Transfusion(s) Oncologic (Cancer) History: Reports: None - Infectious Disease History Infectious Disease History: Reports: Chicken Pox - Past Surgical History Head Surgeries/Procedures: Reports: None HEENT Surgical History: Reports: Other (See Below) Other HEENT Surgeries/Procedures: nasal cautery for excessive bleeding Female Surgical History: Reports: Hysterectomy, Tubal Ligation Social & Family History - Family History Family Medical History: No Pertinent Family History Endocrine/Metabolic: Reports: Diabetes, Type I Oncologic: Reports: Bone, Breast, Prostate, Skin - Tobacco Use Tobacco Use Status *Q: Never Tobacco User - Caffeine Use Caffeine Use: Reports: Coffee, Soda, Tea Other Caffeine Use: Little of soda, drinks more tea than coffee - Recreational Drug Use Recreational Drug Use: No ED ROS GENERAL - Review of Systems Review Of Systems: See Below ED EXAM, GENERAL - Physical Exam Exam: See Below #1 Interpretation EKG Date: 04/13/21 Time: 06:40 EKG Interpretation Comments: EKG: As interpreted by ER physician: Inessa: Nonspecific ST-T wave abnormalities QRS axis of -[address] elevation VT Normal sinus rhythm heart rate of 69 Departure - Departure Disposition: Admitted As Inpatient 67 Clinical Impression: Rectal bleeding, Crohn's colitis - Discharge Information Referrals: Lucie Hernandez MD [Primary Care Provider] - Forms: ED Department Discharge Sepsis Event Note (ED) - Evaluation Sepsis Screening Result: No Definite Risk <Christian Dowd - Last Filed: 04/13/21 08:23> Course - Vital Signs Last Recorded V/S: Last Vital Signs Temp 98.2 F 04/13/21 05:39 Pulse 75 04/13/21 08:01 Resp 18 04/13/21 08:01 BP 106/79 04/13/21 08:01 Pulse Ox 94 L 04/13/21 08:01 - Orders/Labs/Meds Orders: Active Orders 24 hr Category Date Time Status Patient Status [ADT] Routine ADT 04/13/21 08:22 Ordered UA W/MICROSCOPIC [URIN] Stat Lab 04/13/21 07:46 Results Sodium Chloride 0.9% [Saline Flush] Med 04/13/21 06:21 Active 10 ml FLUSH ASDIRECTED PRN Sodium Chloride 0.9% [Saline Flush] Med 04/13/21 06:21 Active 2.5 ml FLUSH ASDIRECTED PRN Saline Lock Insert [OM.PC] Stat Oth 04/13/21 06:21 Ordered Medication Orders Sodium Chloride (Sodium Chloride 0.9% 10 Ml Syringe) 10 ml FLUSH ASDIRECTED PRN PRN Reason: Keep Vein Open Last Admin: 04/13/21 06:29 Dose: 10 ml Documented by: CANDE Sodium Chloride (Sodium Chloride 0.9% 2.5 Ml Syringe) 2.5 ml FLUSH ASDIRECTED PRN PRN Reason: Keep Vein Open Last Admin: 04/13/21 06:29 Dose: 2.5 ml Documented by: CANDE Labs: Laboratory Tests 04/13/21 04/13/21 04/13/21 Range/Units 06:08 06:08 06:08 WBC 17.00 H (4.0-11.0) K/uL RBC 4.50 (4.30-5.90) M/uL Hgb 14.4 (12.0-16.0) g/dL Hct 41.1 (36.0-46.0) % MCV 91.3 (80.0-98.0) fL MCH 32.0 (27.0-32.0) pg MCHC 35.0 (31.0-37.0) g/dL RDW Std Deviation 45.8 (28.0-62.0) fl RDW Coeff of An 14 (11.0-15.0) % Plt Count 404 H (150-400) K/uL MPV 9.60 (7.40-12.00) fL Neut % (Auto) 82.3 H (48.0-80.0) % Lymph % (Auto) 8.6 L (16.0-40.0) % [place] % (Auto) 8.8 (0.0-15.0) % Eos % (Auto) 0.2 (0.0-7.0) % Baso % (Auto) 0.1 (0.0-1.5) % Neut # (Auto) 14.0 H (1.4-5.7) K/uL Lymph # (Auto) 1.5 (0.6-2.4) K/uL [place] # (Auto) 1.5 H (0.0-0.8) K/uL Eos # (Auto) 0.0 (0.0-0.7) K/uL Baso # (Auto) 0.0 (0.0-0.1) K/uL Nucleated RBC % 0.0 /100WBC Nucleated RBCs # 0 K/uL INR 1.05 APTT (18.6-31.3) SEC Sodium 139 (136-145) mmol/L Potassium 3.7 (3.5-5.1) mmol/L Chloride 105 (98-107) mmol/L Carbon Dioxide 23.8 (21.0-32.0) mmol/L BUN 17 (7.0-18.0) mg/dL Creatinine 0.9 (0.6-1.0) mg/dL Est Cr Clr Drug Dosing 54.53 mL/min Estimated GFR (MDRD) > 60.0 ml/min Glucose 154 H (74-106) mg/dL Calcium 10.2 H (8.5-10.1) mg/dL Magnesium 2.4 (1.8-2.4) mg/dL Total Bilirubin 0.6 (0.2-1.0) mg/dL AST 19 (15-37) IU/L ALT 30 (14-63) IU/L Alkaline Phosphatase 97 (46-116) U/L Total Protein 7.8 (6.4-8.2) g/dL Albumin 3.2 L (3.4-5.0) g/dL Globulin 4.6 H (2.6-4.0) g/dL Albumin/Globulin Ratio 0.7 L (0.9-1.6) Lipase 70 L (73-393) U/L Urine Color Urine Appearance Urine pH (5.0-8.0) Ur Specific [place] (1.001-1.035) Urine Protein (NEGATIVE) mg/dL Urine Glucose (UA) (NEGATIVE) mg/dL Urine Ketones (NEGATIVE) mg/dL Urine Occult Blood (NEGATIVE) Urine Nitrite (NEGATIVE) Urine Bilirubin (NEGATIVE) Urine Urobilinogen (<2.0) EU/dL Ur Leukocyte Esterase (NEGATIVE) Influenza Type A RNA (NEGATIVE) Influenza Type B RNA (NEGATIVE) SARS-CoV-2 RNA (SAMINA) (NEGATIVE) Blood Type Antibody Screen 04/13/21 04/13/21 04/13/21 Range/Units 06:08 06:32 06:35 WBC (4.0-11.0) K/uL RBC (4.30-5.90) M/uL Hgb (12.0-16.0) g/dL Hct (36.0-46.0) % MCV (80.0-98.0) fL MCH (27.0-32.0) pg MCHC (31.0-37.0) g/dL RDW Std Deviation (28.0-62.0) fl RDW Coeff of An (11.0-15.0) % Plt Count (150-400) K/uL MPV (7.40-12.00) fL Neut % (Auto) (48.0-80.0) % Lymph % (Auto) (16.0-40.0) % [place] % (Auto) (0.0-15.0) % Eos % (Auto) (0.0-7.0) % Baso % (Auto) (0.0-1.5) % Neut # (Auto) (1.4-5.7) K/uL Lymph # (Auto) (0.6-2.4) K/uL [place] # (Auto) (0.0-0.8) K/uL Eos # (Auto) (0.0-0.7) K/uL Baso # (Auto) (0.0-0.1) K/uL Nucleated RBC % /100WBC Nucleated RBCs # K/uL INR APTT 25.3 (18.6-31.3) SEC Sodium (136-145) mmol/L Potassium (3.5-5.1) mmol/L Chloride (98-107) mmol/L Carbon Dioxide (21.0-32.0) mmol/L BUN (7.0-18.0) mg/dL Creatinine (0.6-1.0) mg/dL Est Cr Clr Drug Dosing mL/min Estimated GFR (MDRD) ml/min Glucose (74-106) mg/dL Calcium (8.5-10.1) mg/dL Magnesium (1.8-2.4) mg/dL Total Bilirubin (0.2-1.0) mg/dL AST (15-37) IU/L ALT (14-63) IU/L Alkaline Phosphatase (46-116) U/L Total Protein (6.4-8.2) g/dL Albumin (3.4-5.0) g/dL Globulin (2.6-4.0) g/dL Albumin/Globulin Ratio (0.9-1.6) Lipase (73-393) U/L Urine Color Urine Appearance Urine pH (5.0-8.0) Ur Specific [place] (1.001-1.035) Urine Protein (NEGATIVE) mg/dL Urine Glucose (UA) (NEGATIVE) mg/dL Urine Ketones (NEGATIVE) mg/dL Urine Occult Blood (NEGATIVE) Urine Nitrite (NEGATIVE) Urine Bilirubin (NEGATIVE) Urine Urobilinogen (<2.0) EU/dL Ur Leukocyte Esterase (NEGATIVE) Influenza Type A RNA NEGATIVE (NEGATIVE) Influenza Type B RNA NEGATIVE (NEGATIVE) SARS-CoV-2 RNA (SAMINA) NEGATIVE (NEGATIVE) Blood Type B POSITIVE Antibody Screen NEGATIVE 04/13/21 Range/Units 07:46 WBC (4.0-11.0) K/uL RBC (4.30-5.90) M/uL Hgb (12.0-16.0) g/dL Hct (36.0-46.0) % MCV (80.0-98.0) fL MCH (27.0-32.0) pg MCHC (31.0-37.0) g/dL RDW Std Deviation (28.0-62.0) fl RDW Coeff of An (11.0-15.0) % Plt Count (150-400) K/uL MPV (7.40-12.00) fL Neut % (Auto) (48.0-80.0) % Lymph % (Auto) (16.0-40.0) % [place] % (Auto) (0.0-15.0) % Eos % (Auto) (0.0-7.0) % Baso % (Auto) (0.0-1.5) % Neut # (Auto) (1.4-5.7) K/uL Lymph # (Auto) (0.6-2.4) K/uL [place] # (Auto) (0.0-0.8) K/uL Eos # (Auto) (0.0-0.7) K/uL Baso # (Auto) (0.0-0.1) K/uL Nucleated RBC % /100WBC Nucleated RBCs # K/uL INR APTT (18.6-31.3) SEC Sodium (136-145) mmol/L Potassium (3.5-5.1) mmol/L Chloride (98-107) mmol/L Carbon Dioxide (21.0-32.0) mmol/L BUN (7.0-18.0) mg/dL Creatinine (0.6-1.0) mg/dL Est Cr Clr Drug Dosing mL/min Estimated GFR (MDRD) ml/min Glucose (74-106) mg/dL Calcium (8.5-10.1) mg/dL Magnesium (1.8-2.4) mg/dL Total Bilirubin (0.2-1.0) mg/dL AST (15-37) IU/L ALT (14-63) IU/L Alkaline Phosphatase (46-116) U/L Total Protein (6.4-8.2) g/dL Albumin (3.4-5.0) g/dL Globulin (2.6-4.0) g/dL Albumin/Globulin Ratio (0.9-1.6) Lipase (73-393) U/L Urine Color STRAW Urine Appearance CLEAR Urine pH 7.0 (5.0-8.0) Ur Specific [place] <= 1.005 (1.001-1.035) Urine Protein NEGATIVE (NEGATIVE) mg/dL Urine Glucose (UA) NEGATIVE (NEGATIVE) mg/dL Urine Ketones NEGATIVE (NEGATIVE) mg/dL Urine Occult Blood MODERATE H (NEGATIVE) Urine Nitrite POSITIVE H (NEGATIVE) Urine Bilirubin NEGATIVE (NEGATIVE) Urine Urobilinogen 0.2 (<2.0) EU/dL Ur Leukocyte Esterase SMALL H (NEGATIVE) Influenza Type A RNA (NEGATIVE) Influenza Type B RNA (NEGATIVE) SARS-CoV-2 RNA (SAMINA) (NEGATIVE) Blood Type Antibody Screen Meds: Medications Generic Name Dose Route Start Last Admin Trade Name Vipul PRN Reason Stop Dose Admin Sodium Chloride 10 ml 04/13/21 06:21 04/13/21 06:29 Sodium Chloride 0.9% 10 Ml Syringe FLUSH 10 ml ASDIRECTED PRN Administration Keep Vein Open Sodium Chloride 2.5 ml 04/13/21 06:21 04/13/21 06:29 Sodium Chloride 0.9% 2.5 Ml Syringe FLUSH 2.5 ml ASDIRECTED PRN Administration Keep Vein Open Discontinued Medications Generic Name Dose Route Start Last Admin Trade Name Vipul PRN Reason Stop Dose Admin Lactated Ringer's 1,000 mls @ 999 mls/hr 04/13/21 06:24 04/13/21 06:29 Ringers, Lactated IV 04/13/21 07:24 999 mls/hr .BOLUS ONE Administration Iopamidol 100 ml 04/13/21 07:39 04/13/21 07:40 Iopamidol 755 Mg/Ml 500 Ml Multipack Bottle IVPUSH 04/13/21 07:40 100 ml ONETIME STA Administration Ondansetron HCl 4 mg 04/13/21 06:21 04/13/21 06:30 Ondansetron 4 Mg/2 Ml Sdv IVPUSH 04/13/21 06:22 4 mg ONETIME ONE Administration Pantoprazole Sodium 40 mg 04/13/21 06:21 12 06:30 Pantoprazole 40 Mg/10 Ml Syringe IVPUSH 04/13/21 06:22 40 mg NOW ONE Administration - Re-Assessments/Exams Free Text/Narrative Re-Assessment/Exam: 04/13/21 08:23 Patient hemoglobin remained stable. Patient vital signs stable as well. Patient CT scan showed a possible colitis. Patient will be admitted if she has is rectal bleeding will have hemoglobin trended and also for possible Crohn's flare. Departure - Departure Time of Disposition: 08:23 Condition: Good Sepsis Event Note (ED) - Focused Exam Vital Signs: Vital Signs Temp Pulse Resp BP Pulse Ox 04/13/21 08:01 75 18 106/79 94 L 04/13/21 05:39 98.2 F 76 17 124/70 96 - My Orders Last 24 Hours: My Active Orders 04/13/21 08:22 Patient Status [ADT] Routine - Assessment/Plan Last 24 Hours: My Active Orders 04/13/21 08:22 Patient Status [ADT] Routine
[2021-04-13] MEDS ORDERED: Lactated Ringers 1,000 ML IV ONE (06:24)
[2021-04-13 06:40] LABS: BLOOD UREA NITROGEN,BUN 17 mg/dL (7.0-18.0); CARBON DIOXIDE,CO2 23.8 mmol/L (21.0-32.0); CHLORIDE,CL 105 mmol/L (98-107); GLUCOSE RANDOM 154 mg/dL (74-106); LIPASE 70 U/L (73-393); POTASSIUM,K 3.7 mmol/L (3.5-5.1); SODIUM,NA 139 mmol/L (136-145)
[2021-04-13 07:23] LABS: CORONAVIRUS COVID-19 NAA NEGATIVE (NEGATIVE); INFLUENZA A NAA NEGATIVE (NEGATIVE); INFLUENZA B NAA NEGATIVE (NEGATIVE)
[2021-04-13] MEDS ORDERED: Iopamidol 755 MG/ML 500 ML Multipack Bottle IVPUSH STA (07:39)
--- NOTE | 2021-04-13 08:00 | CT ---
INDICATION: Rectal bleeding in the setting of Crohn`s disease COMPARISON: None TECHNIQUE: CT examination of the abdomen and pelvis was performed following the uneventful intravenous administration of 100 cc of Isovue 370. Thin section axial images were obtained from the lung bases through the pubic symphysis. Oral contrast was not administered. Please note that all CT scans at this facility use dose modulation, iterative reconstruction, and/or weight-based dosing when appropriate to reduce radiation dose to as low as reasonably achievable. FINDINGS: LUNG BASES: Opacities at the lung bases are likely atelectatic.The heart size is normal at the lung bases. LIVER/BILIARY SYSTEM:The liver is normal in size and configuration. There is no focal mass and there is no intra- or extra hepatic biliary ductal dilatation.The gall bladder appears normal. Normal appearing ADRENALS: KIDNEYS, URETERS and BLADDER:The kidneys are normal in size. Renal cortical scarring. A few tiny low-density lesions are identified consistent with cysts. There are parapelvic sinus lymphatics cysts on the left. SPLEEN:Normal appearance. PANCREAS: Appears normal. RETROPERITONEUM and MESENTERY: There is no mass, adenopathy or aortic aneurysm. GASTROINTESTINAL SYSTEM: Extensive transmural thickening of the left half of the transverse colon, the descending colon, the sigmoid and upper rectum consistent with colitis. Left paracolic gutter fluid and inflammatory change but no collection, free air or intramural air. The findings are consistent with colitis. PELVIS: Calcifications associated with the right ovary probably a dermoid. This measures 2.8 centimeters in greatest dimension. OSSEOUS STRUCTURES and ABDOMINAL WALL: Degenerative changes without fracture or destructive processno significant abdominal wall defect. OTHER: No free fluid or free air. IMPRESSION: 1. Extensive transmural thickening of the left half of the transverse colon, the descending colon from the sigmoid and upper rectum consistent with colitis. No intramural air, free air or collection. 2. There is a 2.8 centimeter partially calcified right adnexal lesion probably a dermoid. 3. Other incidental nonacute appearing findings as discussed in the body of the report Please note that all CT scans at this facility use dose modulation, iterative reconstruction, and/or weight-based dosing when appropriate to reduce radiation dose to as low as reasonably achievable. Dictated by Harry Gunn MD @ 04/13/2021 7:59:10 AM (Electronically Signed)
--- NOTE | 2021-04-13 11:15 | PCM.HP.2 ---
H&P History of Present Illness - General Date of Service: 04/13/21 Admit Problem/Dx: Admission Diagnosis/Problem Admission Diagnosis/Problem Crohn's disease - History of Present Illness Initial Comments - Free Text/Narative: The patient is a 65-year-old female, on day 1 of service, who has a significant past medical history of Crohn's disease, hypertension, and neuropathy, who was admitted to the medical floor due to a flareup of her Crohn's disease. For the past 48 hours the patient has been having worsening abdominal pain in the lower regions bilaterally, 6 out of 10 in intensity, dull in nature, and nonradiating, associated with bloody diarrhea. She has not had any fever, chills, recent sick contacts, recent antibiotic use, trauma to the region, or issues with urination. The patient is on infliximab for her Crohn's disease and receives infusions every 8 weeks. She does not use any laxatives. Her hemoglobin is currently stable. She has no known drug allergies. She does been seen there in the past with diagnoses of C. difficile colitis, and thought we should treat this as possibly a Crohn's disease flare up versus possible C. difficile infection. CBC, white blood cell count of 17.00, hemoglobin is 14.4, hematocrit is 41.1, platelet count of 404. CMP, sodium was 139, potassium was 3.7, chloride is 105, carbon dioxide is 23.8, BUN is 17, creatinine is 0.9, glucose is 154. On CT of the abdomen and pelvis, extensive extramural thickening of the left half of the transverse colon and descending colon is seen which is consistent with colitis. In the emergency department, the patient was given a lactated Ringer's bolus of 1000 mL once, Zofran once for vomiting, and pantoprazole once 40 mg. She also had the above test done including a CBC, CMP, and CT of the abdomen and pelvis. Lower Abdomen Pain Score (Numeric/FACES): 3 - Related Data Allergies/Adverse Reactions: Allergies Allergy/AdvReac Type Severity Reaction Status Date / Time No Known Drug Allergies Allergy Other Verified 04/13/21 10:33 pollen extracts Allergy Other Verified 04/13/21 10:33 Home Medications: Home Meds Aspirin 1 tab PO BEDTIME 06/08/15 [History] Gabapentin 600 mg PO TID 02/02/16 [History] Sennosides/Docusate Sodium [Stool Softener] 1 tab PO BEDTIME 06/08/15 [History] Vitamin B Complex Vit C No.4 [Super B Complex] 1 tab PO BEDTIME 06/08/15 [History] amLODIPine [Norvasc] 7.5 mg PO BEDTIME 06/08/15 [History] diphenhydrAMINE [Benadryl] 1 tab PO Q6H PRN 06/08/15 [History] Calcium Carbonate [Calcium] 1 tab PO BEDTIME 09/11/16 [History] Captopril [Capoten] 25 mg PO BID 09/11/16 [History] Multivitamin [Multivitamins] 1 cap PO BEDTIME 09/11/16 [History] DULoxetine HCl [Duloxetine HCl] 60 mg PO DAILY 04/13/21 [History] Pantoprazole 20 mg PO DAILY 04/13/21 [History] Potassium Chloride 30 meq PO DAILY 04/13/21 [History] atenoloL [Tenormin] 100 mg PO DAILY 04/13/21 [History] Past Medical History HEENT History: Reports: Impaired Vision Cardiovascular History: Reports: High Cholesterol, Hypertension Other Gastrointestinal History: chrons disease Genitourinary History: Reports: Other (See Below) Other Genitourinary History: bladder infection Musculoskeletal History: Reports: Back Pain, Chronic Other Neuro History: neuropathy in feet Hematologic History: Reports: Blood Transfusion(s) Oncologic (Cancer) History: Reports: None - Infectious Disease History Infectious Disease History: Reports: Chicken Pox, Measles - Past Surgical History Head Surgeries/Procedures: Reports: None HEENT Surgical History: Reports: Other (See Below) Other HEENT Surgeries/Procedures: nasal cautery for excessive bleeding Female Surgical History: Reports: Hysterectomy, Tubal Ligation Social & Family History - Family History Family Medical History: No Pertinent Family History Endocrine/Metabolic: Reports: Diabetes, Type I Oncologic: Reports: Bone, Breast, Prostate, Skin - Tobacco Use Tobacco Use Status *Q: Never Tobacco User - Caffeine Use Caffeine Use: Reports: Coffee, Tea Other Caffeine Use: Little of soda, drinks more tea than coffee - Recreational Drug Use Recreational Drug Use: No H&P Review of Systems - Review of Systems: Review Of Systems: See Below General: Denies: Fever, Chills, Fatigue HEENT: Denies: Headaches, Sinus Congestion Pulmonary: Denies: Shortness of Breath, Cough Cardiovascular: Denies: Chest Pain, Palpitations Gastrointestinal: Reports: Abdominal Pain, Bloody Stool, Diarrhea, Flatus. Denies: Nausea, Vomiting Genitourinary: Denies: Dysuria, Frequency, Burning Exam - Exam Exam: See Below - Vital Signs Vital Signs: Last Vital Signs Temp 98.5 F 04/13/21 10:29 Pulse 85 04/13/21 10:29 Resp 16 04/13/21 10:29 BP 141/88 H 04/13/21 10:29 Pulse Ox 97 04/13/21 10:29 Weight: 150 lb 12.739 oz - Exam General: Alert, Oriented, Cooperative HEENT: Other (Dry mucous membranes, capillary refill less than 2 seconds) Neck: Trachea Midline. No: Lymphadenopathy Lungs: Clear to Auscultation, Normal Respiratory Effort Cardiovascular: Regular Rate, Regular Rhythm GI/Abdominal Exam: Tender - Patient Data Lab Results Last 24 hrs: Laboratory Results - last 24 hr 04/13/21 04/13/21 04/13/21 Range/Units 06:08 06:08 06:08 WBC 17.00 H (4.0-11.0) K/uL RBC 4.50 (4.30-5.90) M/uL Hgb 14.4 (12.0-16.0) g/dL Hct 41.1 (36.0-46.0) % MCV 91.3 (80.0-98.0) fL MCH 32.0 (27.0-32.0) pg MCHC 35.0 (31.0-37.0) g/dL RDW Std Deviation 45.8 (28.0-62.0) fl RDW Coeff of An 14 (11.0-15.0) % Plt Count 404 H (150-400) K/uL MPV 9.60 (7.40-12.00) fL Neut % (Auto) 82.3 H (48.0-80.0) % Lymph % (Auto) 8.6 L (16.0-40.0) % [place] % (Auto) 8.8 (0.0-15.0) % Eos % (Auto) 0.2 (0.0-7.0) % Baso % (Auto) 0.1 (0.0-1.5) % Neut # (Auto) 14.0 H (1.4-5.7) K/uL Lymph # (Auto) 1.5 (0.6-2.4) K/uL [place] # (Auto) 1.5 H (0.0-0.8) K/uL Eos # (Auto) 0.0 (0.0-0.7) K/uL Baso # (Auto) 0.0 (0.0-0.1) K/uL Nucleated RBC % 0.0 /100WBC Nucleated RBCs # 0 K/uL INR 1.05 APTT (18.6-31.3) SEC Sodium 139 (136-145) mmol/L Potassium 3.7 (3.5-5.1) mmol/L Chloride 105 (98-107) mmol/L Carbon Dioxide 23.8 (21.0-32.0) mmol/L BUN 17 (7.0-18.0) mg/dL Creatinine 0.9 (0.6-1.0) mg/dL Est Cr Clr Drug Dosing 54.53 mL/min Estimated GFR (MDRD) > 60.0 ml/min Glucose 154 H (74-106) mg/dL Calcium 10.2 H (8.5-10.1) mg/dL Magnesium 2.4 (1.8-2.4) mg/dL Total Bilirubin 0.6 (0.2-1.0) mg/dL AST 19 (15-37) IU/L ALT 30 (14-63) IU/L Alkaline Phosphatase 97 (46-116) U/L Total Protein 7.8 (6.4-8.2) g/dL Albumin 3.2 L (3.4-5.0) g/dL Globulin 4.6 H (2.6-4.0) g/dL Albumin/Globulin Ratio 0.7 L (0.9-1.6) Lipase 70 L (73-393) U/L Urine Color Urine Appearance Urine pH (5.0-8.0) Ur Specific Crane (1.001-1.035) Urine Protein (NEGATIVE) mg/dL Urine Glucose (UA) (NEGATIVE) mg/dL Urine Ketones (NEGATIVE) mg/dL Urine Occult Blood (NEGATIVE) Urine Nitrite (NEGATIVE) Urine Bilirubin (NEGATIVE) Urine Urobilinogen (<2.0) EU/dL Ur Leukocyte Esterase (NEGATIVE) Urine RBC (0-2/HPF) Urine WBC (0-5/HPF) Ur Epithelial Cells (NONE-FEW) Urine Bacteria (NEGATIVE) Influenza Type A RNA (NEGATIVE) Influenza Type B RNA (NEGATIVE) SARS-CoV-2 RNA (SAMINA) (NEGATIVE) Blood Type Antibody Screen 04/13/21 04/13/21 04/13/21 Range/Units 06:08 06:32 06:35 WBC (4.0-11.0) K/uL RBC (4.30-5.90) M/uL Hgb (12.0-16.0) g/dL Hct (36.0-46.0) % MCV (80.0-98.0) fL MCH (27.0-32.0) pg MCHC (31.0-37.0) g/dL RDW Std Deviation (28.0-62.0) fl RDW Coeff of An (11.0-15.0) % Plt Count (150-400) K/uL MPV (7.40-12.00) fL Neut % (Auto) (48.0-80.0) % Lymph % (Auto) (16.0-40.0) % [place] % (Auto) (0.0-15.0) % Eos % (Auto) (0.0-7.0) % Baso % (Auto) (0.0-1.5) % Neut # (Auto) (1.4-5.7) K/uL Lymph # (Auto) (0.6-2.4) K/uL [place] # (Auto) (0.0-0.8) K/uL Eos # (Auto) (0.0-0.7) K/uL Baso # (Auto) (0.0-0.1) K/uL Nucleated RBC % /100WBC Nucleated RBCs # K/uL INR APTT 25.3 (18.6-31.3) SEC Sodium (136-145) mmol/L Potassium (3.5-5.1) mmol/L Chloride (98-107) mmol/L Carbon Dioxide (21.0-32.0) mmol/L BUN (7.0-18.0) mg/dL Creatinine (0.6-1.0) mg/dL Est Cr Clr Drug Dosing mL/min Estimated GFR (MDRD) ml/min Glucose (74-106) mg/dL Calcium (8.5-10.1) mg/dL Magnesium (1.8-2.4) mg/dL Total Bilirubin (0.2-1.0) mg/dL AST (15-37) IU/L ALT (14-63) IU/L Alkaline Phosphatase (46-116) U/L Total Protein (6.4-8.2) g/dL Albumin (3.4-5.0) g/dL Globulin (2.6-4.0) g/dL Albumin/Globulin Ratio (0.9-1.6) Lipase (73-393) U/L Urine Color Urine Appearance Urine pH (5.0-8.0) Ur Specific Crane (1.001-1.035) Urine Protein (NEGATIVE) mg/dL Urine Glucose (UA) (NEGATIVE) mg/dL Urine Ketones (NEGATIVE) mg/dL Urine Occult Blood (NEGATIVE) Urine Nitrite (NEGATIVE) Urine Bilirubin (NEGATIVE) Urine Urobilinogen (<2.0) EU/dL Ur Leukocyte Esterase (NEGATIVE) Urine RBC (0-2/HPF) Urine WBC (0-5/HPF) Ur Epithelial Cells (NONE-FEW) Urine Bacteria (NEGATIVE) Influenza Type A RNA NEGATIVE (NEGATIVE) Influenza Type B RNA NEGATIVE (NEGATIVE) SARS-CoV-2 RNA (SAMINA) NEGATIVE (NEGATIVE) Blood Type B POSITIVE Antibody Screen NEGATIVE 04/13/21 Range/Units 07:46 WBC (4.0-11.0) K/uL RBC (4.30-5.90) M/uL Hgb (12.0-16.0) g/dL Hct (36.0-46.0) % MCV (80.0-98.0) fL MCH (27.0-32.0) pg MCHC (31.0-37.0) g/dL RDW Std Deviation (28.0-62.0) fl RDW Coeff of An (11.0-15.0) % Plt Count (150-400) K/uL MPV (7.40-12.00) fL Neut % (Auto) (48.0-80.0) % Lymph % (Auto) (16.0-40.0) % [place] % (Auto) (0.0-15.0) % Eos % (Auto) (0.0-7.0) % Baso % (Auto) (0.0-1.5) % Neut # (Auto) (1.4-5.7) K/uL Lymph # (Auto) (0.6-2.4) K/uL [place] # (Auto) (0.0-0.8) K/uL Eos # (Auto) (0.0-0.7) K/uL Baso # (Auto) (0.0-0.1) K/uL Nucleated RBC % /100WBC Nucleated RBCs # K/uL INR APTT (18.6-31.3) SEC Sodium (136-145) mmol/L Potassium (3.5-5.1) mmol/L Chloride (98-107) mmol/L Carbon Dioxide (21.0-32.0) mmol/L BUN (7.0-18.0) mg/dL Creatinine (0.6-1.0) mg/dL Est Cr Clr Drug Dosing mL/min Estimated GFR (MDRD) ml/min Glucose (74-106) mg/dL Calcium (8.5-10.1) mg/dL Magnesium (1.8-2.4) mg/dL Total Bilirubin (0.2-1.0) mg/dL AST (15-37) IU/L ALT (14-63) IU/L Alkaline Phosphatase (46-116) U/L Total Protein (6.4-8.2) g/dL Albumin (3.4-5.0) g/dL Globulin (2.6-4.0) g/dL Albumin/Globulin Ratio (0.9-1.6) Lipase (73-393) U/L Urine Color STRAW Urine Appearance CLEAR Urine pH 7.0 (5.0-8.0) Ur Specific Crane <= 1.005 (1.001-1.035) Urine Protein NEGATIVE (NEGATIVE) mg/dL Urine Glucose (UA) NEGATIVE (NEGATIVE) mg/dL Urine Ketones NEGATIVE (NEGATIVE) mg/dL Urine Occult Blood MODERATE H (NEGATIVE) Urine Nitrite POSITIVE H (NEGATIVE) Urine Bilirubin NEGATIVE (NEGATIVE) Urine Urobilinogen 0.2 (<2.0) EU/dL Ur Leukocyte Esterase SMALL H (NEGATIVE) Urine RBC 0-5 (0-2/HPF) Urine WBC 10-20 (0-5/HPF) Ur Epithelial Cells FEW (NONE-FEW) Urine Bacteria 2+ H (NEGATIVE) Influenza Type A RNA (NEGATIVE) Influenza Type B RNA (NEGATIVE) SARS-CoV-2 RNA (SAMINA) (NEGATIVE) Blood Type Antibody Screen Result Diagrams: 04/13/21 11:16 04/13/21 06:08 Sepsis Event Note - Evaluation Sepsis Screening Result: No Definite Risk - Focused Exam Vital Signs: Vital Signs Temp Pulse Resp BP Pulse Ox 04/13/21 10:29 98.5 F 85 16 141/88 H 97 04/13/21 09:52 71 16 115/76 93 L 04/13/21 08:01 75 18 106/79 94 L 04/13/21 05:39 98.2 F 76 17 124/70 96 - Problem List (1) Hypertension SNOMED Code(s): 09222481 ICD Code: I10 - ESSENTIAL (PRIMARY) HYPERTENSION Status: Acute Current Visit: Yes (2) Neuropathy SNOMED Code(s): 649791791 ICD Code: G62.9 - POLYNEUROPATHY, UNSPECIFIED Status: Acute Current Visit: Yes (3) Crohn's colitis SNOMED Code(s): 67929236 ICD Code: K50.10 - CROHN'S DISEASE OF LARGE INTESTINE WITHOUT COMPLICATIONS Status: Acute Current Visit: Yes (4) Rectal bleeding SNOMED Code(s): 57962925 ICD Code: K62.5 - HEMORRHAGE OF ANUS AND RECTUM Status: Acute Current Vis it: Yes Problem List Initiated/Reviewed/Updated: Yes Orders Last 24hrs: Active Orders 24 hr Category Date Time Status Patient Status [ADT] Routine ADT 04/13/21 08:22 Active Vaccine to be Administered/Admin Charge [RC] ASDIRECTED Care 04/13/21 10:40 Active CBC W/O DIFF,HEMOGRAM [HEME] Routine Lab 04/13/21 09:55 Ordered FLU Vacc [id number](6MOS UP)/PF [Fluzone Quad [id number] Med 04/18/21 11:15 Once Syringe] 60 mcg IM .ONCE ONE Sodium Chloride 0.9% [Saline Flush] Med 04/13/21 06:21 Active 10 ml FLUSH ASDIRECTED PRN Sodium Chloride 0.9% [Saline Flush] Med 04/13/21 06:21 Active 2.5 ml FLUSH ASDIRECTED PRN Saline Lock Insert [OM.PC] Stat Oth 04/13/21 06:21 Ordered Medication Orders Influenza Virus Vaccine (Flu Vacc [id number](6mos Up)/Pf 60 Mcg/0.5 Ml Syringe) 60 mcg IM .ONCE ONE Stop: 04/18/21 11:16 Sodium Chloride (Sodium Chloride 0.9% 10 Ml Syringe) 10 ml FLUSH ASDIRECTED PRN PRN Reason: Keep Vein Open Last Admin: 04/13/21 06:29 Dose: 10 ml Documented by: CANDE Sodium Chloride (Sodium Chloride 0.9% 2.5 Ml Syringe) 2.5 ml FLUSH ASDIRECTED PRN PRN Reason: Keep Vein Open Last Admin: 04/13/21 06:29 Dose: 2.5 ml Documented by: CANDE Assessment/Plan Comment:: Admit the patient to the medical floor, vitals per unit routine, activity up ad sue., the patient is full code, GI prophylaxis with pantoprazole every 12 hours, DVT prophylaxis with sequential compression devices, the patient feels she can eat so we will start off with a clear liquid diet 1. Crohn's disease flareup versus C. difficile colitis -We will initiate IV ciprofloxacin, 400 mg to be taken twice a day -We will initiate IV metronidazole, 500 mg to be taken 3 times a day -Monitor patient with daily CBC and CMP -Ordered C. difficile test 2. Neuropathy -Continue with gabapentin and duloxetine 3. Hypertension -Continue with amlodipine and captopril
[2021-04-13] MEDS ORDERED: methylPREDNISolone Sodium Succinate 125 MG/2 ML SDV IVPUSH SCH (15:30)
[2021-04-13] MEDS: Pantoprazole 40 MG/10 ML Syringe IVPUSH SCH ×2 (15:56→21:08)
[2021-04-13] MEDS: metroNIDAZOLE/Normal Saline 500 MG in Premix Bag 1 BAG IV SCH ×2 (15:59→21:08)
[2021-04-13] MEDS: DULoxetine 60 MG Cap PO SCH (15:59)
[2021-04-13] MEDS: Ciprofloxacin in D5W 400 MG in Premix Bag 1 BAG IV SCH ×2 (17:32)
[2021-04-13] MEDS: Gabapentin 300 MG Cap PO SCH (17:55)
[2021-04-13] MEDS: amLODIPine 5 MG Tab PO SCH (21:05)
[2021-04-14] MEDS: Ciprofloxacin in D5W 400 MG in Premix Bag 1 BAG IV SCH ×4 (04:00→15:47)
[2021-04-14] MEDS: Gabapentin 300 MG Cap PO SCH ×3 (05:25→22:00)
[2021-04-14] MEDS: metroNIDAZOLE/Normal Saline 500 MG in Premix Bag 1 BAG IV SCH ×3 (05:25→22:02)
[2021-04-14 06:49] LABS: BLOOD UREA NITROGEN,BUN 11 mg/dL (7.0-18.0); CARBON DIOXIDE,CO2 27.4 mmol/L (21.0-32.0); CHLORIDE,CL 106 mmol/L (98-107); GLUCOSE RANDOM 145 mg/dL (74-106); SODIUM,NA 141 mmol/L (136-145)
[2021-04-14] MEDS ORDERED: Potassium Chloride 20 MEQ Tab.ER PO ONE (07:39)
[2021-04-14] MEDS ORDERED: Sodium Chloride 0.9% with KCl 1,000 ML IV SCH (07:45)
[2021-04-14] MEDS: DULoxetine 60 MG Cap PO SCH (08:15)
[2021-04-14] MEDS: Pantoprazole 40 MG/10 ML Syringe IVPUSH SCH ×2 (08:16→20:10)
--- NOTE | 2021-04-14 11:46 | PCM.PN ---
- General Info Date of Service: 04/14/21 Subjective Update: The patient is a 65-year-old female, on day 2 of service, who has a significant past medical history of Crohn's disease, hypertension, and neuropathy, who was admitted to the medical floor due to a flareup of her Crohn's disease. The patient continues to have abdominal pain in the lower regions bilaterally, 4 out of 10 in intensity, dull in nature, and nonradiating, which is associated with bloody diarrhea with 2 episodes last night. Her most recent C. difficile was negative. She was found to have a urinary tract infection on UA and as a result the ciprofloxacin that was being used to treat the Crohn's flare up will also cover this infection. We have also ordered a urine culture. Her potassium levels were depleted this morning at 3.0 and as a result she will be given intravenous potassium chloride 40 mEq and per oral potassium chloride 40 mEq. She denies nausea, vomiting, or any other GI issues. She has no other health concerns at this time. - Review of Systems General: Reports: Fatigue. Denies: Weakness HEENT: Denies: Headaches, Sore Throat Pulmonary: Denies: Shortness of Breath, Cough Cardiovascular: Denies: Chest Pain Gastrointestinal: Reports: Abdominal Pain. Denies: Nausea, Vomiting Genitourinary: Reports: Dysuria. Denies: Frequency, Burning - Patient Data Vitals - Most Recent: Last Vital Signs Temp 98.0 F 04/14/21 08:00 Pulse 77 04/14/21 08:00 Resp 16 04/14/21 08:00 BP 104/61 04/14/21 08:14 Pulse Ox 93 L 04/14/21 08:00 Weight - Most Recent: 150 lb 12.739 oz I&O - Last 24 Hours: Intake & Output 04/13/21 04/14/21 04/14/21 22:59 06:59 14:59 Intake Total 1650 Output Total 1000 Balance 650 Lab Results Last 24 Hours: Laboratory Results - last 24 hr 04/13/21 04/14/21 04/14/21 Range/Units 20:06 05:18 05:18 WBC 9.60 (4.0-11.0) K/uL RBC 3.75 L (4.30-5.90) M/uL Hgb 12.5 11.9 L (12.0-16.0) g/dL Hct 36.1 34.7 L (36.0-46.0) % MCV 92.5 (80.0-98.0) fL MCH 31.7 (27.0-32.0) pg MCHC 34.3 (31.0-37.0) g/dL RDW Std Deviation 46.2 (28.0-62.0) fl RDW Coeff of An 14 (11.0-15.0) % Plt Count 308 (150-400) K/uL MPV 10.00 (7.40-12.00) fL Neut % (Auto) 70.5 (48.0-80.0) % Lymph % (Auto) 16.0 (16.0-40.0) % [place] % (Auto) 10.0 (0.0-15.0) % Eos % (Auto) 3.3 (0.0-7.0) % Baso % (Auto) 0.2 (0.0-1.5) % Neut # (Auto) 6.8 H (1.4-5.7) K/uL Lymph # (Auto) 1.5 (0.6-2.4) K/uL [place] # (Auto) 1.0 H (0.0-0.8) K/uL Eos # (Auto) 0.3 (0.0-0.7) K/uL Baso # (Auto) 0.0 (0.0-0.1) K/uL Nucleated RBC % 0.0 /100WBC Nucleated RBCs # 0 K/uL Sodium 141 (136-145) mmol/L Potassium 3.0 L (3.5-5.1) mmol/L Chloride 106 (98-107) mmol/L Carbon Dioxide 27.4 (21.0-32.0) mmol/L BUN 11 (7.0-18.0) mg/dL Creatinine 0.7 (0.6-1.0) mg/dL Est Cr Clr Drug Dosing 70.11 mL/min Estimated GFR (MDRD) > 60.0 ml/min Glucose 145 H (74-106) mg/dL Calcium 9.4 (8.5-10.1) mg/dL Total Bilirubin 0.4 (0.2-1.0) mg/dL AST 10 L (15-37) IU/L ALT 19 (14-63) IU/L Alkaline Phosphatase 72 (46-116) U/L Total Protein 6.5 (6.4-8.2) g/dL Albumin 2.6 L (3.4-5.0) g/dL Globulin 3.9 (2.6-4.0) g/dL Albumin/Globulin Ratio 0.7 L (0.9-1.6) [place] Results Last 24 Hours: Microbiology 04/13/21 21:22 C. difficile Antigen & Toxins A,B - Final Stool / Feces Med Orders - Current: Current Medications Amlodipine Besylate (Amlodipine 5 Mg Tab) 7.5 mg PO BEDTIME [facility] Last Admin: 04/13/21 21:05 Dose: 7.5 mg Documented by: Captopril (Captopril 25 Mg Tab) 25 mg PO BID [facility] Last Admin: 04/14/21 08:14 Dose: 25 mg Documented by: Duloxetine HCl (Duloxetine 60 Mg Cap) 60 mg PO DAILY [facility] Last Admin: 04/14/21 08:15 Dose: 60 mg Documented by: Gabapentin (Gabapentin 300 Mg Cap) 600 mg PO TID [facility] Last Admin: 04/14/21 05:25 Dose: 600 mg Documented by: Ciprofloxacin/Dextrose 400 mg/ (Premix) 200 mls @ 200 mls/hr IV Q12H [facility] Last Admin: 04/14/21 04:00 Dose: 200 mls/hr Documented by: Metronidazole 500 mg/ Premix 100 mls @ 100 mls/hr IV TID [facility] Last Admin: 04/14/21 05:25 Dose: 100 mls/hr Documented by: Potassium Chloride/Sodium Chloride (Normal Saline With 40 Meq Kcl) 1,000 mls @ 125 mls/hr IV ASDIRECTED [facility] Last Admin: 04/14/21 10:28 Dose: 125 mls/hr Documented by: Influenza Virus Vaccine (Flu Vacc [id number](6mos Up)/Pf 60 Mcg/0.5 Ml Syringe) 60 mcg IM .ONCE ONE Stop: 04/18/21 11:16 Pantoprazole Sodium (Pantoprazole 40 Mg/10 Ml Syringe) 40 mg IVPUSH Q12HR [facility] Last Admin: 04/14/21 08:16 Dose: 40 mg Documented by: Sodium Chloride (Sodium Chloride 0.9% 10 Ml Syringe) 10 ml FLUSH ASDIRECTED PRN PRN Reason: Keep Vein Open Last Admin: 04/13/21 06:29 Dose: 10 ml Documented by: Sodium Chloride (Sodium Chloride 0.9% 2.5 Ml Syringe) 2.5 ml FLUSH ASDIRECTED PRN PRN Reason: Keep Vein Open Last Admin: 04/13/21 06:29 Dose: 2.5 ml Documented by: Discontinued Medications Lactated Ringer's (Ringers, Lactated) 1,000 mls @ 999 mls/hr IV .BOLUS ONE Stop: 04/13/21 07:24 Last Admin: 04/13/21 06:29 Dose: 999 mls/hr Documented by: Influenza Virus Vaccine (Pharmacy To Dose - Influenza Vaccine) 1 each IM ONETIME ONE Stop: 04/13/21 10:40 Iopamidol (Iopamidol 755 Mg/Ml 500 Ml Multipack Bottle) 100 ml IVPUSH ONETIME STA Stop: 04/13/21 07:40 Last Admin: 04/13/21 07:40 Dose: 100 ml Documented by: Methylprednisolone Sodium Succinate (Methylprednisolone Sodium Succinate 125 Mg/2 Ml Sdv) 60 mg IVPUSH DAILY [facility] Ondansetron HCl (Ondansetron 4 Mg/2 Ml Sdv) 4 mg IVPUSH ONETIME ONE Stop: 04/13/21 06:22 Last Admin: 04/13/21 06:30 Dose: 4 mg Documented by: Pantoprazole Sodium (Pantoprazole 40 Mg/10 Ml Syringe) 40 mg IVPUSH NOW ONE Stop: 04/13/21 06:22 Last Admin: 04/13/21 06:30 Dose: 40 mg Documented by: Potassium Chloride (Potassium Chloride 20 Meq Tab.Er) 40 meq PO ONETIME ONE Stop: 04/14/21 07:40 Last Admin: 04/14/21 08:14 Dose: 40 meq Documented by: - Exam General: Alert, Oriented, Cooperative HEENT: Mucous Membr. Moist/[place] Neck: Trachea Midline Lungs: Clear to Auscultation, Normal Respiratory Effort Cardiovascular: Regular Rate, Regular Rhythm GI/Abdominal Exam: Normal Bowel Sounds, Tender, Other (Suprapubic pressure) - Patient Data Lab Results Last 24 hrs: Laboratory Results - last 24 hr 04/13/21 04/14/21 04/14/21 Range/Units 20:06 05:18 05:18 WBC 9.60 (4.0-11.0) K/uL RBC 3.75 L (4.30-5.90) M/uL Hgb 12.5 11.9 L (12.0-16.0) g/dL Hct 36.1 34.7 L (36.0-46.0) % MCV 92.5 (80.0-98.0) fL MCH 31.7 (27.0-32.0) pg MCHC 34.3 (31.0-37.0) g/dL RDW Std Deviation 46.2 (28.0-62.0) fl RDW Coeff of An 14 (11.0-15.0) % Plt Count 308 (150-400) K/uL MPV 10.00 (7.40-12.00) fL Neut % (Auto) 70.5 (48.0-80.0) % Lymph % (Auto) 16.0 (16.0-40.0) % [place] % (Auto) 10.0 (0.0-15.0) % Eos % (Auto) 3.3 (0.0-7.0) % Baso % (Auto) 0.2 (0.0-1.5) % Neut # (Auto) 6.8 H (1.4-5.7) K/uL Lymph # (Auto) 1.5 (0.6-2.4) K/uL [place] # (Auto) 1.0 H (0.0-0.8) K/uL Eos # (Auto) 0.3 (0.0-0.7) K/uL Baso # (Auto) 0.0 (0.0-0.1) K/uL Nucleated RBC % 0.0 /100WBC Nucleated RBCs # 0 K/uL Sodium 141 (136-145) mmol/L Potassium 3.0 L (3.5-5.1) mmol/L Chloride 106 (98-107) mmol/L Carbon Dioxide 27.4 (21.0-32.0) mmol/L BUN 11 (7.0-18.0) mg/dL Creatinine 0.7 (0.6-1.0) mg/dL Est Cr Clr Drug Dosing 70.11 mL/min Estimated GFR (MDRD) > 60.0 ml/min Glucose 145 H (74-106) mg/dL Calcium 9.4 (8.5-10.1) mg/dL Total Bilirubin 0.4 (0.2-1.0) mg/dL AST 10 L (15-37) IU/L ALT 19 (14-63) IU/L Alkaline Phosphatase 72 (46-116) U/L Total Protein 6.5 (6.4-8.2) g/dL Albumin 2.6 L (3.4-5.0) g/dL Globulin 3.9 (2.6-4.0) g/dL Albumin/Globulin Ratio 0.7 L (0.9-1.6) Result Diagrams: 04/14/21 05:18 04/14/21 05:18 [place] Results Last 24 hrs: Microbiology 04/13/21 21:22 C. difficile Antigen & Toxins A,B - Final Stool / Feces Sepsis Event Note - Evaluation Sepsis Screening Result: No Definite Risk - Focused Exam Vital Signs: Vital Signs Temp Pulse Resp BP BP Pulse Ox 04/14/21 08:14 104/61 04/14/21 08:00 98.0 F 77 16 104/61 93 L 04/14/21 04:00 98.1 F 71 14 105/66 93 L 04/14/21 00:31 97.9 F 76 18 97/62 90 L - Problem List & Annotations (1) Hypertension SNOMED Code(s): 58969394 Code(s): I10 - ESSENTIAL (PRIMARY) HYPERTENSION Status: Acute Current Visit: Yes (2) Neuropathy SNOMED Code(s): 898800059 Code(s): G62.9 - POLYNEUROPATHY, UNSPECIFIED Status: Acute Current Visit: Yes (3) Crohn's colitis SNOMED Code(s): 49397156 Code(s): K50.10 - CROHN'S DISEASE OF LARGE INTESTINE WITHOUT COMPLICATIONS Status: Acute Current Visit: Yes (4) Rectal bleeding SNOMED Code(s): 65837166 Code(s): K62.5 - HEMORRHAGE OF ANUS AND RECTUM Status: Acute Current Visit: Yes (5) Hypokalemia SNOMED Code(s): 37201568 Code(s): E87.6 - HYPOKALEMIA Status: Acute Current Visit: Yes (6) UTI (urinary tract infection) SNOMED Code(s): 55143395 Code(s): N39.0 - URINARY TRACT INFECTION, SITE NOT SPECIFIED Status: Acute Current Visit: Yes - Problem List Review Problem List Initiated/Reviewed/Updated: Yes - My Orders Last 24 Hours: My Active Orders 04/13/21 13:56 Antiembolic Devices [RC] PER UNIT ROUTINE SCD [Sequential Compression Device] [OM.PC] Routine 04/13/21 14:00 Code Status [Resuscitation Status] Routine 04/13/21 15:30 DULoxetine [Cymbalta] 60 mg PO DAILY Pantoprazole [ProTONIX] 40 mg IVPUSH Q12HR metroNIDAZOLE/Normal Saline [Flagyl in NS 500 MG/100 ML] 500 mg Premix Bag 1 bag IV TID 04/13/21 15:33 Communication Order [RC] ROUTINE 04/13/21 Dinner Clear Liquid Diet [DIET] 04/13/21 16:30 Ciprofloxacin in D5W [Cipro in D5W 400 MG/200 ML] 400 mg Premix Bag 1 bag IV Q12H 04/13/21 17:30 Gabapentin [Neurontin] 600 mg PO TID 04/13/21 21:00 amLODIPine [Norvasc] 7.5 mg PO BEDTIME captopriL [Capoten] 25 mg PO BID 04/14/21 07:45 Sodium Chloride 0.9% with KCl [Normal Saline with 40 mEq KCl] 1,000 ml IV ASDIRECTED 04/15/21 05:11 CBC WITH AUTO DIFF [HEME] AM CMP [COMPREHENSIVE METABOLIC PN,CMP] [CHEM] AM 04/16/21 05:11 CBC WITH AUTO DIFF [HEME] AM CMP [COMPREHENSIVE METABOLIC PN,CMP] [CHEM] AM - Plan Plan:: 1. Crohn's disease flareup -Continue IV ciprofloxacin, 400 mg to be taken twice a day -Continue IV metronidazole, 500 mg to be taken 3 times a day -Monitor patient with daily CBC and CMP 2. Urinary tract infection -Ciprofloxacin per IV route used for #1, will also treat this infection -Urine culture has been ordered 3. Hypokalemia -Give potassium chloride 40 mEq IV and 40 mEq p.o. 4. Neuropathy -Continue with gabapentin and duloxetine 5. Hypertension -Continue with amlodipine and captopril
[2021-04-14] MEDS: amLODIPine 5 MG Tab PO SCH (20:09)
[2021-04-15] MEDS: Ciprofloxacin in D5W 400 MG in Premix Bag 1 BAG IV SCH ×2 (04:06)
[2021-04-15] MEDS: Gabapentin 300 MG Cap PO SCH (05:24)
[2021-04-15] MEDS: metroNIDAZOLE/Normal Saline 500 MG in Premix Bag 1 BAG IV SCH (05:24)
[2021-04-15 06:32] LABS: BLOOD UREA NITROGEN,BUN 7 mg/dL (7.0-18.0); CARBON DIOXIDE,CO2 25.9 mmol/L (21.0-32.0); CHLORIDE,CL 107 mmol/L (98-107); GLUCOSE RANDOM 117 mg/dL (74-106); POTASSIUM,K 3.4 mmol/L (3.5-5.1); SODIUM,NA 141 mmol/L (136-145)
[2021-04-15] MEDS ORDERED: Potassium Chloride 20 MEQ Tab.ER PO ONE (07:54)
[2021-04-15] MEDS: Pantoprazole 40 MG/10 ML Syringe IVPUSH SCH (09:29)
[2021-04-15] MEDS: DULoxetine 60 MG Cap PO SCH (09:29)
--- NOTE | 2021-04-15 10:22 | PCM.PN ---
- General Info Date of Service: 04/15/21 Subjective Update: The patient is a 65-year-old female, on day 3 of service, who has a significant past medical history of Crohn's disease, hypertension, and neuropathy, who was admitted to the medical floor due to a flareup of her Crohn's disease. Throughout the patient's hospital stay, she was treated with IV ciprofloxacin and IV Flagyl for her Crohn's flareup. She also had a C. difficile test done which was negative. Her abdominal pain upon presentation was quite severe and she was having bloody stools when using the restroom. This morning the patient admits that her abdominal pain has completely subsided as she is no longer having bloody stools. I spoke to GI specialist Dr. Kenny in [place] who is familiar with this patient's case and he recommended sending this patient home on oral antibiotics once her pain subsided and if she had a negative C. difficile test. The patient is to follow-up with his colleague next year for colonoscopy. That being said, the patient will be sent home on a 7-day regimen of oral ciprofloxacin 750 mg to be taken once a day and oral metronidazole 500 mg to be taken twice a day for the same duration of time. She has also been counseled on purchasing probiotics [id number] at the pharmacy. The patient was also hypokalemic throughout her hospital stay and had to be supplied potassium chloride. She has been advised to eat foods that are high in potassium upon discharge including bananas. The patient has been educated on being compliant with her medication and taking them at scheduled times. She has also been advised to return to the hospital if she has increasing abdominal pain, bloody stools, hematemesis, chest pain, or palpitations. The patient is now stable and can be discharged home. - Review of Systems General: Denies: Fever, Weakness, Fatigue HEENT: Denies: Headaches, Sore Throat Pulmonary: Denies: Shortness of Breath, Cough Cardiovascular: Denies: Chest Pain, Palpitations Gastrointestinal: Denies: Abdominal Pain, Nausea, Vomiting Genitourinary: Denies: Dysuria - Patient Data Vitals - Most Recent: Last Vital Signs Temp 97.4 F 04/15/21 07:28 Pulse 79 04/15/21 07:28 Resp 16 04/15/21 07:28 BP 126/72 04/15/21 09:28 Pulse Ox 97 04/15/21 07:28 Weight - Most Recent: 150 lb 12.739 oz I&O - Last 24 Hours: Intake & Output 04/14/21 04/15/21 04/15/21 22:59 06:59 14:59 Intake Total 1100 900 Output Total 900 650 Balance 200 250 Lab Results Last 24 Hours: Laboratory Results - last 24 hr 04/15/21 04/15/21 Range/Units 05:37 05:37 WBC 7.67 (4.0-11.0) K/uL RBC 3.66 L (4.30-5.90) M/uL Hgb 11.5 L (12.0-16.0) g/dL Hct 34.2 L (36.0-46.0) % MCV 93.4 (80.0-98.0) fL MCH 31.4 (27.0-32.0) pg MCHC 33.6 (31.0-37.0) g/dL RDW Std Deviation 47.3 (28.0-62.0) fl RDW Coeff of An 14 (11.0-15.0) % Plt Count 286 (150-400) K/uL MPV 9.60 (7.40-12.00) fL Neut % (Auto) 62.6 (48.0-80.0) % Lymph % (Auto) 17.2 (16.0-40.0) % [place] % (Auto) 9.9 (0.0-15.0) % Eos % (Auto) 9.9 H (0.0-7.0) % Baso % (Auto) 0.4 (0.0-1.5) % Neut # (Auto) 4.8 (1.4-5.7) K/uL Lymph # (Auto) 1.3 (0.6-2.4) K/uL [place] # (Auto) 0.8 (0.0-0.8) K/uL Eos # (Auto) 0.8 H (0.0-0.7) K/uL Baso # (Auto) 0.0 (0.0-0.1) K/uL Nucleated RBC % 0.0 /100WBC Nucleated RBCs # 0 K/uL Sodium 141 (136-145) mmol/L Potassium 3.4 L (3.5-5.1) mmol/L Chloride 107 (98-107) mmol/L Carbon Dioxide 25.9 (21.0-32.0) mmol/L BUN 7 (7.0-18.0) mg/dL Creatinine 0.7 (0.6-1.0) mg/dL Est Cr Clr Drug Dosing 70.11 mL/min Estimated GFR (MDRD) > 60.0 ml/min Glucose 117 H (74-106) mg/dL Calcium 9.7 (8.5-10.1) mg/dL Total Bilirubin 0.3 (0.2-1.0) mg/dL AST 14 L (15-37) IU/L ALT 22 (14-63) IU/L Alkaline Phosphatase 71 (46-116) U/L Total Protein 6.5 (6.4-8.2) g/dL Albumin 2.6 L (3.4-5.0) g/dL Globulin 3.9 (2.6-4.0) g/dL Albumin/Globulin Ratio 0.7 L (0.9-1.6) Med Orders - Current: Current Medications Amlodipine Besylate (Amlodipine 5 Mg Tab) 7.5 mg PO BEDTIME [facility] Last Admin: 04/14/21 20:09 Dose: 7.5 mg Documented by: Captopril (Captopril 25 Mg Tab) 25 mg PO BID [facility] Last Admin: 04/15/21 09:28 Dose: 25 mg Documented by: Duloxetine HCl (Duloxetine 60 Mg Cap) 60 mg PO DAILY [facility] Last Admin: 04/15/21 09:29 Dose: 60 mg Documented by: Gabapentin (Gabapentin 300 Mg Cap) 600 mg PO TID [facility] Last Admin: 04/15/21 05:24 Dose: 600 mg Documented by: Ciprofloxacin/Dextrose 400 mg/ (Premix) 200 mls @ 200 mls/hr IV Q12H [facility] Last Admin: 04/15/21 04:06 Dose: 200 mls/hr Documented by: Metronidazole 500 mg/ Premix 100 mls @ 100 mls/hr IV TID [facility] Last Admin: 04/15/21 05:24 Dose: 100 mls/hr Documented by: Potassium Chloride/Sodium Chloride (Normal Saline With 40 Meq Kcl) 1,000 mls @ 125 mls/hr IV ASDIRECTED [facility] Last Admin: 04/14/21 10:28 Dose: 125 mls/hr Documented by: Influenza Virus Vaccine (Flu Vacc [id number](6mos Up)/Pf 60 Mcg/0.5 Ml Syringe) 60 mcg IM .ONCE ONE Stop: 04/18/21 11:16 Pantoprazole Sodium (Pantoprazole 40 Mg/10 Ml Syringe) 40 mg IVPUSH Q12HR [facility] Last Admin: 04/15/21 09:29 Dose: 40 mg Documented by: Sodium Chloride (Sodium Chloride 0.9% 10 Ml Syringe) 10 ml FLUSH ASDIRECTED PRN PRN Reason: Keep Vein Open Last Admin: 04/13/21 06:29 Dose: 10 ml Documented by: Sodium Chloride (Sodium Chloride 0.9% 2.5 Ml Syringe) 2.5 ml FLUSH ASDIRECTED PRN PRN Reason: Keep Vein Open Last Admin: 04/13/21 06:29 Dose: 2.5 ml Documented by: Discontinued Medications Lactated Ringer's (Ringers, Lactated) 1,000 mls @ 999 mls/hr IV .BOLUS ONE Stop: 04/13/21 07:24 Last Admin: 04/13/21 06:29 Dose: 999 mls/hr Documented by: Influenza Virus Vaccine (Pharmacy To Dose - Influenza Vaccine) 1 each IM ONETIME ONE Stop: 04/13/21 10:40 Iopamidol (Iopamidol 755 Mg/Ml 500 Ml Multipack Bottle) 100 ml IVPUSH ONETIME STA Stop: 04/13/21 07:40 Last Admin: 04/13/21 07:40 Dose: 100 ml Documented by: Methylprednisolone Sodium Succinate (Methylprednisolone Sodium Succinate 125 Mg/2 Ml Sdv) 60 mg IVPUSH DAILY [facility] Ondansetron HCl (Ondansetron 4 Mg/2 Ml Sdv) 4 mg IVPUSH ONETIME ONE Stop: 04/13/21 06:22 Last Admin: 04/13/21 06:30 Dose: 4 mg Documented by: Pantoprazole Sodium (Pantoprazole 40 Mg/10 Ml Syringe) 40 mg IVPUSH NOW ONE Stop: 04/13/21 06:22 Last Admin: 04/13/21 06:30 Dose: 40 mg Documented by: Potassium Chloride (Potassium Chloride 20 Meq Tab.Er) 40 meq PO ONETIME ONE Stop: 04/14/21 07:40 Last Admin: 04/14/21 08:14 Dose: 40 meq Documented by: Potassium Chloride (Potassium Chloride 20 Meq Tab.Er) 40 meq PO ONETIME ONE Stop: 04/15/21 07:55 Last Admin: 04/15/21 09:27 Dose: 40 meq Documented by: - Exam General: Alert, Oriented, Cooperative HEENT: Mucous Membr. Moist/[place] Neck: Trachea Midline Lungs: Clear to Auscultation, Normal Respiratory Effort Cardiovascular: Regular Rate, Regular Rhythm GI/Abdominal Exam: Normal Bowel Sounds, Soft, Non-Tender - Patient Data Lab Results Last 24 hrs: Laboratory Results - last 24 hr 04/15/21 04/15/21 Range/Units 05:37 05:37 WBC 7.67 (4.0-11.0) K/uL RBC 3.66 L (4.30-5.90) M/uL Hgb 11.5 L (12.0-16.0) g/dL Hct 34.2 L (36.0-46.0) % MCV 93.4 (80.0-98.0) fL MCH 31.4 (27.0-32.0) pg MCHC 33.6 (31.0-37.0) g/dL RDW Std Deviation 47.3 (28.0-62.0) fl RDW Coeff of An 14 (11.0-15.0) % Plt Count 286 (150-400) K/uL MPV 9.60 (7.40-12.00) fL Neut % (Auto) 62.6 (48.0-80.0) % Lymph % (Auto) 17.2 (16.0-40.0) % [place] % (Auto) 9.9 (0.0-15.0) % Eos % (Auto) 9.9 H (0.0-7.0) % Baso % (Auto) 0.4 (0.0-1.5) % Neut # (Auto) 4.8 (1.4-5.7) K/uL Lymph # (Auto) 1.3 (0.6-2.4) K/uL [place] # (Auto) 0.8 (0.0-0.8) K/uL Eos # (Auto) 0.8 H (0.0-0.7) K/uL Baso # (Auto) 0.0 (0.0-0.1) K/uL Nucleated RBC % 0.0 /100WBC Nucleated RBCs # 0 K/uL Sodium 141 (136-145) mmol/L Potassium 3.4 L (3.5-5.1) mmol/L Chloride 107 (98-107) mmol/L Carbon Dioxide 25.9 (21.0-32.0) mmol/L BUN 7 (7.0-18.0) mg/dL Creatinine 0.7 (0.6-1.0) mg/dL Est Cr Clr Drug Dosing 70.11 mL/min Estimated GFR (MDRD) > 60.0 ml/min Glucose 117 H (74-106) mg/dL Calcium 9.7 (8.5-10.1) mg/dL Total Bilirubin 0.3 (0.2-1.0) mg/dL AST 14 L (15-37) IU/L ALT 22 (14-63) IU/L Alkaline Phosphatase 71 (46-116) U/L Total Protein 6.5 (6.4-8.2) g/dL Albumin 2.6 L (3.4-5.0) g/dL Globulin 3.9 (2.6-4.0) g/dL Albumin/Globulin Ratio 0.7 L (0.9-1.6) Result Diagrams: 04/15/21 05:37 04/15/21 05:37 Sepsis Event Note - Evaluation Sepsis Screening Result: No Definite Risk - Focused Exam Vital Signs: Vital Signs Temp Pulse Resp BP BP Pulse Ox 04/15/21 09:28 126/72 04/15/21 07:28 97.4 F 79 16 126/72 97 04/15/21 04:00 96.3 F L 77 14 122/68 93 L 04/15/21 00:00 96.9 F 71 14 102/61 93 L - Problem List & Annotations (1) Hypertension SNOMED Code(s): 84094611 Code(s): I10 - ESSENTIAL (PRIMARY) HYPERTENSION Status: Acute Current Visit: Yes (2) Neuropathy SNOMED Code(s): 868701577 Code(s): G62.9 - POLYNEUROPATHY, UNSPECIFIED Status: Acute Current Visit: Yes (3) Crohn's colitis SNOMED Code(s): 35244277 Code(s): K50.10 - CROHN'S DISEASE OF LARGE INTESTINE WITHOUT COMPLICATIONS Status: Acute Current Visit: Yes (4) Rectal bleeding SNOMED Code(s): 44052481 Code(s): K62.5 - HEMORRHAGE OF ANUS AND RECTUM Status: Acute Current Visit: Yes (5) Hypokalemia SNOMED Code(s): 06931203 Code(s): E87.6 - HYPOKALEMIA Status: Acute Current Visit: Yes (6) UTI (urinary tract infection) SNOMED Code(s): 49559696 Code(s): N39.0 - URINARY TRACT INFECTION, SITE NOT SPECIFIED Status: Acute Current Visit: Yes - My Orders Last 24 Hours: My Active Orders 04/15/21 10:14 Ready for Discharge [RC] PER UNIT ROUTINE 04/16/21 05:11 CBC WITH AUTO DIFF [HEME] AM CMP [COMPREHENSIVE METABOLIC PN,CMP] [CHEM] AM - Plan Plan:: 1. Crohn's disease flareup -Continue IV ciprofloxacin, 400 mg to be taken twice a day -Continue IV metronidazole, 500 mg to be taken 3 times a day -Monitor patient with daily CBC and CMP 2. Urinary tract infection -Ciprofloxacin per IV route used for #1, will also treat this infection -Urine culture has been ordered 3. Hypokalemia -Give potassium chloride 40 mEq IV and 40 mEq p.o. 4. Neuropathy -Continue with gabapentin and duloxetine 5. Hypertension -Continue with amlodipine and captopril
--- NOTE | 2021-04-15 10:25 | PCM.DCSUM1 ---
<Leah Davison - Last Filed: 04/15/21 10:24> Discharge Summary - Hospital Course Free Text/Narrative:: The patient is a 65-year-old female, on day 3 of service, who has a significant past medical history of Crohn's disease, hypertension, and neuropathy, who was admitted to the medical floor due to a flareup of her Crohn's disease. Throughout the patient's hospital stay, she was treated with IV ciprofloxacin and IV Flagyl for her Crohn's flareup. She also had a C. difficile test done which was negative. Her abdominal pain upon presentation was quite severe and she was having bloody stools when using the restroom. This morning the patient admits that her abdominal pain has completely subsided as she is no longer having bloody stools. I spoke to GI specialist Dr. Kenny in [place] who is familiar with this patient's case and he recommended sending this patient home on oral antibiotics once her pain subsided and if she had a negative C. difficile test. The patient is to follow-up with his colleague next year for colonoscopy. That being said, the patient will be sent home on a 7-day regimen of oral ciprofloxacin 750 mg to be taken once a day and oral metronidazole 500 mg to be taken twice a day for the same duration of time. She has also been counseled on purchasing probiotics [id number] at the pharmacy. The patient was also hypokalemic throughout her hospital stay and had to be supplied potassium chloride. She has been advised to eat foods that are high in potassium upon discharge including bananas. The patient has been educated on being compliant with her medication and taking them at scheduled times. She has also been advised to return to the hospital if she has increasing abdominal pain, bloody stools, hematemesis, chest pain, or palpitations. The patient is now stable and can be discharged home. - Discharge Data Discharge Date: 04/15/21 Discharge Disposition: Home, Self-Care 01 Condition: Stable - Referral to Home Health Primary Care Physician: Lucie Vu MD - Discharge Diagnosis/Problem(s) (1) Hypertension SNOMED Code(s): 86306727 ICD Code: I10 - ESSENTIAL (PRIMARY) HYPERTENSION Status: Acute Current Visit: Yes (2) Neuropathy SNOMED Code(s): 935813154 ICD Code: G62.9 - POLYNEUROPATHY, UNSPECIFIED Status: Acute Current Visit: Yes (3) Crohn's colitis SNOMED Code(s): 60238408 ICD Code: K50.10 - CROHN'S DISEASE OF LARGE INTESTINE WITHOUT COMPLICATIONS Status: Acute Current Visit: Yes (4) Rectal bleeding SNOMED Code(s): 45589521 ICD Code: K62.5 - HEMORRHAGE OF ANUS AND RECTUM Status: Acute Current Visit: Yes (5) Hypokalemia SNOMED Code(s): 65594732 ICD Code: E87.6 - HYPOKALEMIA Status: Acute Current Visit: Yes (6) UTI (urinary tract infection) SNOMED Code(s): 23318096 ICD Code: N39.0 - URINARY TRACT INFECTION, SITE NOT SPECIFIED Status: Acute Current Visit: Yes - Patient Instructions Diet: Usual Diet as Tolerated Activity: As Tolerated Showering/Bathing: May Shower Other/Special Instructions: -Return to the hospital if you have increasing abdominal pain, bloody stools, hematemesis, chest pain, palpitations. -Follow-up with your primary care provider. -Set up appointment with your GI specialist. -Purchase probiotics [id number] at pharmacy. -Take your medication at scheduled times - Discharge Plan Prescriptions/Med Rec: Ciprofloxacin HCl 750 mg PO DAILY 7 Days #7 tablet metroNIDAZOLE [Flagyl] 500 mg PO Q12H #14 tab Home Medications: Home Meds Aspirin 1 tab PO BEDTIME 06/08/15 [History] Gabapentin 600 mg PO TID 06/08/15 [History] Sennosides/Docusate Sodium [Stool Softener] 1 tab PO BEDTIME 06/08/15 [History] Vitamin B Complex Vit C No.4 [Super B Complex] 1 tab PO BEDTIME 06/08/15 [History] amLODIPine [Norvasc] 7.5 mg PO BEDTIME 06/08/15 [History] diphenhydrAMINE [Benadryl] 1 tab PO Q6H PRN 06/08/15 [History] Calcium Carbonate [Calcium] 1 tab PO BEDTIME 09/11/16 [History] Captopril [Capoten] 25 mg PO BID 09/11/16 [History] Multivitamin [Multivitamins] 1 cap PO BEDTIME 09/11/16 [History] DULoxetine HCl [Duloxetine HCl] 60 mg PO DAILY 04/13/21 [History] Pantoprazole 20 mg PO DAILY 04/13/21 [History] Potassium Chloride 30 meq PO DAILY 04/13/21 [History] atenoloL [Tenormin] 100 mg PO DAILY 04/13/21 [History] Ciprofloxacin HCl 750 mg PO DAILY 7 Days #7 tablet 04/15/21 [Rx] metroNIDAZOLE [Flagyl] 500 mg PO Q12H #14 tab 04/15/21 [Rx] Patient Handouts: Colitis, Rectal Bleeding, [id number] Referrals: Daryn Young MD [Physician] - 04/20/21 2:30 pm - Discharge Summary/Plan Comment DC Time >30 min.: Yes Total # of Minutes for Discharge Time: 35 minutes - Review of Systems General: Denies: Fever, Weakness, Fatigue HEENT: Denies: Headaches, Sore Throat Pulmonary: Denies: Shortness of Breath, Cough Cardiovascular: Denies: Chest Pain, Palpitations Gastrointestinal: Denies: Abdominal Pain, Nausea, Vomiting Genitourinary: Denies: Dysuria - Patient Data Vitals - Most Recent: Last Vital Signs Temp 97.4 F 04/15/21 07:28 Pulse 79 04/15/21 07:28 Resp 16 04/15/21 07:28 BP 126/72 04/15/21 09:28 Pulse Ox 97 04/15/21 07:28 Weight - Most Recent: 68.4 kg I&O - Last 24 hours: Intake & Output 04/14/21 04/15/21 04/15/21 22:59 06:59 14:59 Intake Total 1100 900 Output Total 900 650 Balance 200 250 Lab Results - Last 24 hrs: Laboratory Results - last 24 hr 04/15/21 04/15/21 Range/Units 05:37 05:37 WBC 7.67 (4.0-11.0) K/uL RBC 3.66 L (4.30-5.90) M/uL Hgb 11.5 L (12.0-16.0) g/dL Hct 34.2 L (36.0-46.0) % MCV 93.4 (80.0-98.0) fL MCH 31.4 (27.0-32.0) pg MCHC 33.6 (31.0-37.0) g/dL RDW Std Deviation 47.3 (28.0-62.0) fl RDW Coeff of An 14 (11.0-15.0) % Plt Count 286 (150-400) K/uL MPV 9.60 (7.40-12.00) fL Neut % (Auto) 62.6 (48.0-80.0) % Lymph % (Auto) 17.2 (16.0-40.0) % [place] % (Auto) 9.9 (0.0-15.0) % Eos % (Auto) 9.9 H (0.0-7.0) % Baso % (Auto) 0.4 (0.0-1.5) % Neut # (Auto) 4.8 (1.4-5.7) K/uL Lymph # (Auto) 1.3 (0.6-2.4) K/uL [place] # (Auto) 0.8 (0.0-0.8) K/uL Eos # (Auto) 0.8 H (0.0-0.7) K/uL Baso # (Auto) 0.0 (0.0-0.1) K/uL Nucleated RBC % 0.0 /100WBC Nucleated RBCs # 0 K/uL Sodium 141 (136-145) mmol/L Potassium 3.4 L (3.5-5.1) mmol/L Chloride 107 (98-107) mmol/L Carbon Dioxide 25.9 (21.0-32.0) mmol/L BUN 7 (7.0-18.0) mg/dL Creatinine 0.7 (0.6-1.0) mg/dL Est Cr Clr Drug Dosing 70.11 mL/min Estimated GFR (MDRD) > 60.0 ml/min Glucose 117 H (74-106) mg/dL Calcium 9.7 (8.5-10.1) mg/dL Total Bilirubin 0.3 (0.2-1.0) mg/dL AST 14 L (15-37) IU/L ALT 22 (14-63) IU/L Alkaline Phosphatase 71 (46-116) U/L Total Protein 6.5 (6.4-8.2) g/dL Albumin 2.6 L (3.4-5.0) g/dL Globulin 3.9 (2.6-4.0) g/dL Albumin/Globulin Ratio 0.7 L (0.9-1.6) Med Orders - Current: Current Medications Amlodipine Besylate (Amlodipine 5 Mg Tab) 7.5 mg PO BEDTIME [facility] Last Admin: 04/14/21 20:09 Dose: 7.5 mg Documented by: Captopril (Captopril 25 Mg Tab) 25 mg PO BID [facility] Last Admin: 04/15/21 09:28 Dose: 25 mg Documented by: Duloxetine HCl (Duloxetine 60 Mg Cap) 60 mg PO DAILY [facility] Last Admin: 04/15/21 09:29 Dose: 60 mg Documented by: Gabapentin (Gabapentin 300 Mg Cap) 600 mg PO TID [facility] Last Admin: 04/15/21 05:24 Dose: 600 mg Documented by: Ciprofloxacin/Dextrose 400 mg/ (Premix) 200 mls @ 200 mls/hr IV Q12H [facility] Last Admin: 04/15/21 04:06 Dose: 200 mls/hr Documented by: Metronidazole 500 mg/ Premix 100 mls @ 100 mls/hr IV TID [facility] Last Admin: 04/15/21 05:24 Dose: 100 mls/hr Documented by: Potassium Chloride/Sodium Chloride (Normal Saline With 40 Meq Kcl) 1,000 mls @ 125 mls/hr IV ASDIRECTED [facility] Last Admin: 04/14/21 10:28 Dose: 125 mls/hr Documented by: Influenza Virus Vaccine (Flu Vacc [id number](6mos Up)/Pf 60 Mcg/0.5 Ml Syringe) 60 mcg IM .ONCE ONE Stop: 04/18/21 11:16 Pantoprazole Sodium (Pantoprazole 40 Mg/10 Ml Syringe) 40 mg IVPUSH Q12HR [facility] Last Admin: 04/15/21 09:29 Dose: 40 mg Documented by: Sodium Chloride (Sodium Chloride 0.9% 10 Ml Syringe) 10 ml FLUSH ASDIRECTED PRN PRN Reason: Keep Vein Open Last Admin: 04/13/21 06:29 Dose: 10 ml Documented by: Sodium Chloride (Sodium Chloride 0.9% 2.5 Ml Syringe) 2.5 ml FLUSH ASDIRECTED PRN PRN Reason: Keep Vein Open Last Admin: 04/13/21 06:29 Dose: 2.5 ml Documented by: Discontinued Medications Lactated Ringer's (Ringers, Lactated) 1,000 mls @ 999 mls/hr IV .BOLUS ONE Stop: 04/13/21 07:24 Last Admin: 04/13/21 06:29 Dose: 999 mls/hr Documented by: Influenza Virus Vaccine (Pharmacy To Dose - Influenza Vaccine) 1 each IM ONETIME ONE Stop: 04/13/21 10:40 Iopamidol (Iopamidol 755 Mg/Ml 500 Ml Multipack Bottle) 100 ml IVPUSH ONETIME STA Stop: 04/13/21 07:40 Last Admin: 04/13/21 07:40 Dose: 100 ml Documented by: Methylprednisolone Sodium Succinate (Methylprednisolone Sodium Succinate 125 Mg/2 Ml Sdv) 60 mg IVPUSH DAILY [facility] Ondansetron HCl (Ondansetron 4 Mg/2 Ml Sdv) 4 mg IVPUSH ONETIME ONE Stop: 04/13/21 06:22 Last Admin: 04/13/21 06:30 Dose: 4 mg Documented by: Pantoprazole Sodium (Pantoprazole 40 Mg/10 Ml Syringe) 40 mg IVPUSH NOW ONE Stop: 04/13/21 06:22 Last Admin: 04/13/21 06:30 Dose: 40 mg Documented by: Potassium Chloride (Potassium Chloride 20 Meq Tab.Er) 40 meq PO ONETIME ONE Stop: 04/14/21 07:40 Last Admin: 04/14/21 08:14 Dose: 40 meq Documented by: Potassium Chloride (Potassium Chloride 20 Meq Tab.Er) 40 meq PO ONETIME ONE Stop: 04/15/21 07:55 Last Admin: 04/15/21 09:27 Dose: 40 meq Documented by: - Exam General: Reports: Alert, Oriented, Cooperative HEENT: Reports: Mucous Membr. Moist/[place] Neck: Reports: Trachea Midline Lungs: Reports: Clear to Auscultation, Normal Respiratory Effort Cardiovascular: Reports: Regular Rate, Regular Rhythm, No Murmurs GI/Abdominal Exam: Normal Bowel Sounds, Soft, Non-Tender <Pastor Elias - Last Filed: 04/15/21 10:59> Discharge Summary - Referral to Home Health Primary Care Physician: Lucie Vu MD - Patient Data Vitals - Most Recent: Last Vital Signs Temp 36.3 C 04/15/21 07:28 Pulse 79 04/15/21 07:28 Resp 16 04/15/21 07:28 BP 126/72 04/15/21 09:28 Pulse Ox 97 04/15/21 07:28 I&O - Last 24 hours: Intake & Output 04/14/21 04/15/21 04/15/21 22:59 06:59 14:59 Intake Total 1100 900 Output Total 900 650 Balance 200 250 Lab Results - Last 24 hrs: Laboratory Results - last 24 hr 04/15/21 04/15/21 Range/Units 05:37 05:37 WBC 7.67 (4.0-11.0) K/uL RBC 3.66 L (4.30-5.90) M/uL Hgb 11.5 L (12.0-16.0) g/dL Hct 34.2 L (36.0-46.0) % MCV 93.4 (80.0-98.0) fL MCH 31.4 (27.0-32.0) pg MCHC 33.6 (31.0-37.0) g/dL RDW Std Deviation 47.3 (28.0-62.0) fl RDW Coeff of An 14 (11.0-15.0) % Plt Count 286 (150-400) K/uL MPV 9.60 (7.40-12.00) fL Neut % (Auto) 62.6 (48.0-80.0) % Lymph % (Auto) 17.2 (16.0-40.0) % [place] % (Auto) 9.9 (0.0-15.0) % Eos % (Auto) 9.9 H (0.0-7.0) % Baso % (Auto) 0.4 (0.0-1.5) % Neut # (Auto) 4.8 (1.4-5.7) K/uL Lymph # (Auto) 1.3 (0.6-2.4) K/uL [place] # (Auto) 0.8 (0.0-0.8) K/uL Eos # (Auto) 0.8 H (0.0-0.7) K/uL Baso # (Auto) 0.0 (0.0-0.1) K/uL Nucleated RBC % 0.0 /100WBC Nucleated RBCs # 0 K/uL Sodium 141 (136-145) mmol/L Potassium 3.4 L (3.5-5.1) mmol/L Chloride 107 (98-107) mmol/L Carbon Dioxide 25.9 (21.0-32.0) mmol/L BUN 7 (7.0-18.0) mg/dL Creatinine 0.7 (0.6-1.0) mg/dL Est Cr Clr Drug Dosing 70.11 mL/min Estimated GFR (MDRD) > 60.0 ml/min Glucose 117 H (74-106) mg/dL Calcium 9.7 (8.5-10.1) mg/dL Total Bilirubin 0.3 (0.2-1.0) mg/dL AST 14 L (15-37) IU/L ALT 22 (14-63) IU/L Alkaline Phosphatase 71 (46-116) U/L Total Protein 6.5 (6.4-8.2) g/dL Albumin 2.6 L (3.4-5.0) g/dL Globulin 3.9 (2.6-4.0) g/dL Albumin/Globulin Ratio 0.7 L (0.9-1.6) Med Orders - Current: Current Medications Amlodipine Besylate (Amlodipine 5 Mg Tab) 7.5 mg PO BEDTIME [facility] Last Admin: 04/14/21 20:09 Dose: 7.5 mg Documented by: Captopril (Captopril 25 Mg Tab) 25 mg PO BID [facility] Last Admin: 04/15/21 09:28 Dose: 25 mg Documented by: Duloxetine HCl (Duloxetine 60 Mg Cap) 60 mg PO DAILY [facility] Last Admin: 04/15/21 09:29 Dose: 60 mg Documented by: Gabapentin (Gabapentin 300 Mg Cap) 600 mg PO TID [facility] Last Admin: 04/15/21 05:24 Dose: 600 mg Documented by: Ciprofloxacin/Dextrose 400 mg/ (Premix) 200 mls @ 200 mls/hr IV Q12H [facility] Last Admin: 04/15/21 04:06 Dose: 200 mls/hr Documented by: Metronidazole 500 mg/ Premix 100 mls @ 100 mls/hr IV TID [facility] Last Admin: 04/15/21 05:24 Dose: 100 mls/hr Documented by: Potassium Chloride/Sodium Chloride (Normal Saline With 40 Meq Kcl) 1,000 mls @ 125 mls/hr IV ASDIRECTED [facility] Last Admin: 04/14/21 10:28 Dose: 125 mls/hr Documented by: Influenza Virus Vaccine (Flu Vacc [id number](6mos Up)/Pf 60 Mcg/0.5 Ml Syringe) 60 mcg IM .ONCE ONE Stop: 04/15/21 11:01 Pantoprazole Sodium (Pantoprazole 40 Mg/10 Ml Syringe) 40 mg IVPUSH Q12HR [facility] Last Admin: 04/15/21 09:29 Dose: 40 mg Documented by: Sodium Chloride (Sodium Chloride 0.9% 10 Ml Syringe) 10 ml FLUSH ASDIRECTED PRN PRN Reason: Keep Vein Open Last Admin: 04/13/21 06:29 Dose: 10 ml Documented by: Sodium Chloride (Sodium Chloride 0.9% 2.5 Ml Syringe) 2.5 ml FLUSH ASDIRECTED PRN PRN Reason: Keep Vein Open Last Admin: 04/13/21 06:29 Dose: 2.5 ml Documented by: Discontinued Medications Lactated Ringer's (Ringers, Lactated) 1,000 mls @ 999 mls/hr IV .BOLUS ONE Stop: 04/13/21 07:24 Last Admin: 04/13/21 06:29 Dose: 999 mls/hr Documented by: Influenza Virus Vaccine (Pharmacy To Dose - Influenza Vaccine) 1 each IM ONETIME ONE Stop: 04/13/21 10:40 Iopamidol (Iopamidol 755 Mg/Ml 500 Ml Multipack Bottle) 100 ml IVPUSH ONETIME STA Stop: 04/13/21 07:40 Last Admin: 04/13/21 07:40 Dose: 100 ml Documented by: Methylprednisolone Sodium Succinate (Methylprednisolone Sodium Succinate 125 Mg/2 Ml Sdv) 60 mg IVPUSH DAILY [facility] Ondansetron HCl (Ondansetron 4 Mg/2 Ml Sdv) 4 mg IVPUSH ONETIME ONE Stop: 04/13/21 06:22 Last Admin: 04/13/21 06:30 Dose: 4 mg Documented by: Pantoprazole Sodium (Pantoprazole 40 Mg/10 Ml Syringe) 40 mg IVPUSH NOW ONE Stop: 04/13/21 06:22 Last Admin: 04/13/21 06:30 Dose: 40 mg Documented by: Potassium Chloride (Potassium Chloride 20 Meq Tab.Er) 40 meq PO ONETIME ONE Stop: 04/14/21 07:40 Last Admin: 04/14/21 08:14 Dose: 40 meq Documented by: Potassium Chloride (Potassium Chloride 20 Meq Tab.Er) 40 meq PO ONETIME ONE Stop: 04/15/21 07:55 Last Admin: 04/15/21 09:27 Dose: 40 meq Documented by: - Free Text/Narrative Note: I have seen and examined the patient. I have discussed findings and treatment plan with the resident. I agree with the assessment and plan as outlined in the following note.
[2021-04-15 12:32] VITALS: BP 103/68; PULSE 86
== END 2021-04-15 12:55 | disposition home or self-care (01) | DRG 245 ==
LOC: MW.ED 05:34 → MW.MS 08:52
PROVIDERS: ADMIT Internal Medicine; ATTEND Internal Medicine
DX: K50.10 Crohn's disease of large intestine without complications (principal); I10 Essential (primary) hypertension; G62.9 Polyneuropathy, unspecified; K62.5 Hemorrhage of anus and rectum; E87.6 Hypokalemia; N39.0 Urinary tract infection, site not specified; Z79.82 Long term (current) use of aspirin; Z79.899 Other long term (current) drug therapy; Z91.09 Other allergy status, other than to drugs and biological substances; H54.7 Unspecified visual loss; E78.00 Pure hypercholesterolemia, unspecified; G89.29 Other chronic pain; M54.9 Dorsalgia, unspecified; Z90.710 Acquired absence of both cervix and uterus; Z98.51 Tubal ligation status; Z20.822 Contact with and (suspected) exposure to COVID-19
CPT/HCPCS: 0240U; 36415; 74177; 74177-26; 80053; 81001; 83690; 83735; 85014; 85018; 85025; 85027; 85610; 85730; 86850; 86900; 86901; 87086; 87088; 87186; 87324; 90686; 93005; 96374; 96375; 99285-25; A9270-GY; C9113; J0744; J2405; J3480; J3490; J7120; Q9967